=== PATIENT | male | born 1980 | race Caucasian/White ===

== ENCOUNTER 2018-11-02 19:39 | Emergency (ER) | payer SELFPAY ==
[~2018-11-02] VITALS: Ht 182.9 cm; Wt 65.8 kg
[2018-11-02 19:39] VITALS: BP 128/56
[~2018-11-02 19:39] MED LIST: METH4TAB PO; OXYC-12 PO; PRM25T PO; VALA100033 PO
--- NOTE | 2018-11-02 19:39 | NUR ---
PT BROUGHT TO ED BY EMS AND POLICE DEPARTMENT. PT HAS BEEN RUNNING ALL OVER [place] TODAY AND HAS BEEN CONTACTED BY THE POLICE DEPARTMENT NUMEROUS TIMES. PT YELLING IN THE HALLWAYS ATT. PT VERY HOSTILE. PT VERY UNCOOPERATIVE ATT, NOT LETTING THIS RN TAKE VITALS OR START IV'S. PT DID AGREE TO HAVE HALDOL IM, THIS WAS GIVEN. PT STATING THAT HE DID NOT NEED ATIVAN, LAB DRAWS, OR HIS BLOOD TESTED BECASUE HE HAD JUST A SMALL PUNCTURE SITE ON HIS KNEE FROM A AUGUST NAIL. THIS RN EDUCATED PT REGARDING NEED FOR TETANUS SHOT, PT REFUSING. MARIMAR ALEX APRN AT BEDSIDE AND ATTEMPTING TO REASON WITH PT. VITAL SIGNS OBATAINED AND STABLE. PT STATES HE HAS NOT TAKEN ANY DRUGS OR ALCOHOL TODAY. PT REFUSING ANY FURTHER TREATMENT. ISMAEL WILL DISCUSS WITH POLICE OPTIONS FOR PATIENTS.
[2018-11-02] MEDS ORDERED: HALOPERIDOL 5 MG/ML (HALDOL) AMP ONE (19:40)
[2018-11-02] MEDS ORDERED: LORazepam INJ 2 MG/ML (ATIVAN) VIAL ONE (19:40)
--- OUTSIDE RECORDS SUMMARY | 2018-11-02 19:44 | XMS REPORT | Continuity of Care Document ---
Author Author [facility] Address Unknown Phone Unavailable Allergies There is no data. Medications There is no data. Problems Date Dx Coded Attending Type Code Diagnosis Diagnosed By 09/19/2014 JENNY LINARES APRN 788.1 DYSURIA 07/03/2018 UNLISTED, UNLISTED A V70.5 HEALTH EXAMINATION OF DEFINED SUBPOPULATIONS 07/03/2018 UNLISTED, UNLISTED A Z02.1 ENCOUNTER FOR PRE-EMPLOYMENT EXAMINATION Procedures Code [place] [address] UA LONG DIP 09/19/2014 43947 CULTURE URINE 09/22/2014 Results Test Result Range - 07/03/18 13:36 Yarn Examiner Skeins Anat Francisco Donor ID By Employer Representitive Location [facility] Reason For Test Random Temperature In Range YES Deg F 90.00-100.00 Urine Amphetamines Confirmatory Testing Submitted to [facility] Urine Barbiturates NEGATIVE Urine Benzodiazepines NEGATIVE Urine Cocaine NEGATIVE Urine MDMA NEGATIVE Urine Methadone NEGATIVE Urine Methamphetamines Confirmatory Testing Submitted to [facility] Urine Opiates NEGATIVE Urine Oxycodone NEGATIVE Urine PCP NEGATIVE Urine THC Metabolite Confirmatory Testing Submitted to [facility] Encounters ACCT No. Visit Date/Time Discharge Status Pt. Type Provider Facility Loc./Unit Complaint [id number] 09/19/2014 13:37:00 09/19/2014 23:59:59 CLS Outpatient JENNY LINARES APRN [id number] 07/03/2018 13:22:00 07/03/2018 23:59:00 DIS Outpatient UNLISTED, UNLISTED [id number] 10/14/2013 10:07:00 10/14/2013 11:38:00 DIS Emergency [id number] 09/27/2018 11:40:00 09/27/2018 23:59:59 CLS Outpatient VESNA CHAUDHRY DO [facility] [place]
[2018-11-02] MEDS ORDERED: TETANUS,DIPTH,PERTUSS P/F (BOOSTRIX) 0.5 ML VIAL IM STA (19:47)
--- NOTE | 2018-11-02 19:50 | NUR ---
PT REFUSING TO GIVE ANY MEDICAL HISTORY OF ANSWER ANY TRIAGE QUESTIONS ATT, WILL ATTEMPT AT A LATER TIME.
--- NOTE | 2018-11-02 19:51 | ED Psychosocial ---
General Stated Complaint: L KNEE PAIN,SUBSTANCE ABUSE Source: patient Exam Limitations: no limitations History of Present Illness Date Seen by Provider: Nov 02, 2018 Time Seen by Provider: 19:49 Initial Comments To ER per [facility] complete by [place] [employer] with reports of substance abuse. Patient has reportedly been roaming the streets, causing disruption in [place]. He is reportedly homeless. Timing/Duration: constant Severity: moderate Allergies and Home Medications Allergies Coded Allergies: No Known Drug Allergies (Unverified , 10/14/13) Home Medications Methylprednisolone 4 Mg/Dose-Pack Tab.ds.pk, 0 PO UD Prescribed by: ALEN EARLY on 10/14/13 1133 Valacyclovir Hcl 1,000 Mg Tablet, 1,000 MG PO TID FOR VIRAL INFECTION Prescribed by: ALEN EARLY on 10/14/13 1133 Patient Home Medication List Home Medication List Reviewed: Yes Review of Systems Constitutional: see HPI, other (unable to obtain due to his manic state) Past Iytuexu-Seeweb-Caawep Hx Patient Social History Recent Foreign Travel: No Contact w/Someone Who Travel: No Physical Exam Capillary Refill : Height, Weight, BMI Height: '" Weight: 165lbs. oz. 74.434099vo; BMI Method:Stated General Appearance: WD/WN, other (manic, purple hair, pink fingernails and toenails. Moaning, talks nonstop about a variety of subjects. Unable to sit still, moving about the bed.) HEENT: PERRL/EOMI, normal ENT inspection Neck: non-tender, full range of motion Respiratory: lungs clear, normal breath sounds, no respiratory distress, no accessory muscle use Cardiovascular: regular rate, rhythm, no murmur Gastrointestinal: normal bowel sounds, soft Extremities: normal range of motion, other (there is an abrasion over the anteromedial aspect of left knee. No palpable effusion or erythema. Ask him what happened here and he states "I'm not going to answer any more frivolous fucking questions!") Neurologic/Psychiatric: alert Appearance/Memory: disheveled, impaired insight Behavior/Eye Contact: increased rate of speech, uncooperative Thoughts/Hallucinations: delusions, flight of ideas, paranoid Skin: normal color, warm/dry Progress/Results/Core Measures Results/Orders My Orders Orders - MARIMAR ALEX APRN Lorazepam Injection (Ativan Injection) (11/02/18 20:00) Haloperidol Injection (Haldol Injectio (11/02/18 20:00) Medications Given in ED Current Medications Medications Dose Ordered Sig/Anabell Route Start Time Stop Time Status Last Admin Dose Admin Haloperidol Lactate 5 mg ONCE ONCE IM 11/02/18 20:00 11/02/18 20:01 DC 11/02/18 19:59 5 MG Departure Communication (Admissions) Patient refuses any lab tests. Refuses IV start. Yelling and screaming, threatening to staff. Refuses the lorazepam. States he is only here for his knee. [place] [employer] pain here. Due to concern for staff safety I will not try to restrain him as he is larger than most of us here. He is alert. I will release him to law enforcement. He did receive his Haldol 5 mg intramuscular. Impression Primary Impression: Left knee pain Qualified Codes: M25.562 - Pain in left knee Additional Impression: Substance abuse Disposition: 21 DIS/X[address]/LAW ENFORCE Condition: Stable Departure-Patient Inst. Decision time for Depature: 19:56 Referrals: NO,LOCAL PHYSICIAN (PCP/Family) Primary Care Physician Patient Instructions: General (DC) Add. Discharge Instructions: 1. Return to ER for any concerns MARIMAR ALEX APRN Nov 02, 2018 19:51
[2018-11-02] MEDS ORDERED: HALOPERIDOL 5 MG/ML (HALDOL) AMP IM ONE (20:00)
[2018-11-02] MEDS ORDERED: LORazepam INJ 2 MG/ML (ATIVAN) VIAL IVP ONE (20:00)
--- NOTE | 2018-11-02 20:00 | NUR ---
PT MEDICALLY CLEARED BY MARIMAR ALEX APRN. PT REFUSING TO SIGN DISCHARGE PAPERS, POLICE TOOK PT INTO CUSTODY ATT.
== END 2018-11-02 19:51 ==
LOC: EDUNIT# 19:39 → ER 19:40
DX: M25.562 Pain in left knee (principal); F19.10 Other psychoactive substance abuse, uncomplicated; Z79.52 Long term (current) use of systemic steroids; Z59.0 Homelessness
CPT/HCPCS: 93041

== ENCOUNTER 2019-01-07 18:08 | Emergency (ER) | payer SELFPAY ==
[~2019-01-07] VITALS: Ht 177.8 cm; Wt 70.3 kg
--- OUTSIDE RECORDS SUMMARY | 2019-01-07 18:12 | XMS REPORT ---
Author Author Migration, Doctor Organization [facility] Address Unknown Phone Unavailable Care Team Providers Care Small Kick Press Operator Name Role Phone Migration, Doctor Unavailable Unavailable PROBLEMS Type Condition ICD9-CM Code ORK23-EF Code Onset Dates Condition Status SNOMED Code Problem Dysuria 788.1 Active [id number] ALLERGIES No Information ENCOUNTERS Encounter Location Date Diagnosis [facility] [id number] [place] [phone] Nov, Acute bronchitis, unspecified organism J20.9 and Fever R50.9 [facility] [id number] [place] [phone] Aug, Worms in stool B83.9 [facility] [id number] [place] [phone] Dec, [facility] [id number] [place] [address] [phone] Dec, [facility] [id number] [place] [address] [phone] Nov, [facility] [id number] [place] [address] [phone] Nov, [facility] [id number] [place] [address] [phone] Nov, [facility] [id number] [place] [address] [phone] Nov, [facility] [id number] [place] [address] [phone] Oct, [facility] [id number] [place] [address] [phone] Oct, [facility] [id number] [place] [address] [phone] Aug, [facility] [address] [facility] [id number] [place] [address] Aug, [facility] [address] [facility] [id number] [place] [address] Aug, IMMUNIZATIONS No Known Immunizations SOCIAL HISTORY Never Assessed REASON FOR VISIT [place] VITAL SIGNS MEDICATIONS Medication Instructions Dosage Frequency Start Date End Date Duration Status HydrOXYzine HCl 25 mg take 1 tablet by Oral route 4 times per day Oct, Active Seroquel 100 mg take 1.5 tablet by Oral route 2 times per day Nov, Active RESULTS No Results PROCEDURES No Known procedures INSTRUCTIONS MEDICATIONS ADMINISTERED No Known Medications MEDICAL (GENERAL) HISTORY Type Description Date 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
--- OUTSIDE RECORDS SUMMARY | 2019-01-07 18:13 | XMS REPORT | Continuity of Care Document ---
Author Organization Unknown Address Unknown Allergies Active Description Code Type Severity Reaction Onset Reported/Identified Relationship to Patient Clinical Status Yes No Known Drug Allergies [id number] Drug Allergy Unknown N/A 10/14/2013 Medications There is no data. 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 10/14/2013 ALEN EARLY DO Ot 782.0 SKIN SENSATION DISTURB 09/19/2014 JENNY LINARES APRN 788.1 DYSURIA 07/03/2018 UNLISTED, UNLISTED A V70.5 HEALTH EXAMINATION OF DEFINED SUBPOPULATIONS 07/03/2018 UNLISTED, UNLISTED A Z02.1 ENCOUNTER FOR PRE-EMPLOYMENT EXAMINATION 11/02/2018 MARIMAR ALEX APRN Ot F19.10 OTHER PSYCHOACTIVE SUBSTANCE ABUSE, UNCO 11/02/2018 MARIMAR ALEX APRN Ot M25.562 PAIN IN LEFT KNEE 11/02/2018 MARIMAR ALEX APRN Ot Z59.0 HOMELESSNESS 11/02/2018 MARIMAR ALEX APRN Ot 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 Type Provider Facility Loc./Unit Complaint [id number] 09/19/2014 13:37:00 09/19/2014 23:59:59 CLS Outpatient JENNY LINARES APRN [id number] 07/03/2018 13:22:00 07/03/2018 23:59:00 DIS Outpatient UNLISTED, UNLISTED [id number] 11/02/2018 19:40:00 11/02/2018 19:51:00 DIS Emergency MARIMAR ALEX APRN [facility] L KNEE PAIN,SUBSTANCE ABUSE [id number] 10/14/2013 10:07:00 10/14/2013 11:38:00 DIS Emergency ALEN EARLY DO [facility] LEFT SIDE FACIAL NUMBNESS [id number] 01/07/2019 18:09:00 ACT Emergency CORBY JASSO, ALICE Guajardo [facility] SIDE PAIN [id number] 12/31/2018 10:35:00 12/31/2018 23:59:59 CLS Outpatient VESNA CHAUDHRY DO [facility]
[2019-01-07] MEDS ORDERED: KETOROLAC 30 MG/ML VIAL IVP ONE (18:15)
[2019-01-07] MEDS: NS IV 1000 ML 1,000 ML IV SCH (18:26)
[2019-01-07 18:30] LABS: BASOPHILS % (AUTO) 0 % (0-10); EOSINOPHILS # (AUTO) 0.3 10^3/uL (0.0-0.3); EOSINOPHILS % (AUTO) 2 % (0-10); HEMATOCRIT 37 % (40-54); LYMPHOCYTES # (AUTO) 2.3 X 10^3 (1.0-4.0); LYMPHOCYTES % (AUTO) 15 % (12-44); MEAN CORPUSCULAR HEMOGLOBIN 33 PG (25-34); MEAN CORPUSCULAR HGB CONC 35 G/DL (32-36); MEAN CORPUSCULAR VOLUME 94 FL (80-99); MEAN PLATELET VOLUME 9.9 FL (7.4-10.4); MONOCYTES # (AUTO) 1.7 X 10^3 (0.0-1.0); MONOCYTES % (AUTO) 11 % (0-12); NEUTROPHILS # (AUTO) 11.7 X 10^3 (1.8-7.8); NEUTROPHILS % (AUTO) 73 % (42-75); PLATELET COUNT 330 10^3/uL (130-400)
[2019-01-07 18:46] LABS: ALANINE AMINOTRANSFERASE 16 U/L (0-55); ALBUMIN 3.7 GM/DL (3.2-4.5); ALKALINE PHOSPHATASE 92 U/L (40-136); AMYLASE 52 U/L (25-125); BILIRUBIN,TOTAL 0.3 MG/DL (0.1-1.0); BUN/CREATININE RATIO 18; CALCIUM 9.1 MG/DL (8.5-10.1); CARBON DIOXIDE 23 MMOL/L (21-32); CHLORIDE 104 MMOL/L (98-107); CREATININE SERUM 0.91 MG/DL (0.60-1.30); GFR ESTIMATED > 60; GLUCOSE 135 MG/DL (70-105); LIPASE 30 U/L (8-78); POTASSIUM 3.8 MMOL/L (3.6-5.0); SODIUM 134 MMOL/L (135-145); TOTAL PROTEIN 6.6 GM/DL (6.4-8.2)
[2019-01-07 18:47] LABS: EOSINOPHILS % (MANUAL) 1 %; LYMPHOCYTES % (MANUAL) 22 %; MONOCYTES % (MANUAL) 10 %; NEUTROPHILS % (MANUAL) 67 %; RBC MORPH NORMAL
--- NOTE | 2019-01-07 18:47 | Diagnostic Imaging Report ---
INDICATION: Left flank pain with hematuria for approximately one week. FINDINGS: An AP view of the abdomen demonstrates moderately increased stool load especially in the region of the splenic flexure. No obstruction is present. The osseous structures are normal. Phleboliths seen in the right side of pelvis. IMPRESSION: There is moderately increased stool load with no obstruction. Dictated by: Dictated on workstation # [id number]
--- NOTE | 2019-01-07 18:50 | NUR ---
REPORT TO WERO
[2019-01-07] MEDS ORDERED: NS IV 1000 ML 1,000 ML IV SCH (19:00)
--- NOTE | 2019-01-07 19:05 | Diagnostic Imaging Report ---
PROCEDURE: CT urinary tract, rule out kidney stone. TECHNIQUE: Multiple contiguous axial images were obtained through the abdomen and pelvis without the use of intravenous contrast. Auto Exposure Controls were utilized during the CT exam to meet ALARA standards for radiation dose reduction. INDICATION: Abdominal pain. COMPARISON STUDY: KUB from earlier today. FINDINGS: The lung bases are clear. The gallbladder is contracted. The liver, spleen, pancreas, adrenal glands, and kidneys appear normal. There is mild thickening of the urinary bladder wall. Possible cystitis. No ascites, free air, or abnormal adenopathy is present. There is a paucity of subcutaneous fat which makes evaluation of mesenteric edema difficult. No definite edema is seen. Bowel loops demonstrate a moderate amount of stool in the colon. Small bowel is nondistended. The appendix is normal. Bone windows are normal. IMPRESSION: There is increased stool throughout the colon. No inflammatory changes are present. The appendix is normal. Dictated by: Dictated on workstation # [id number]
[2019-01-07 19:34] LABS: BILIRUBIN,URINE NEGATIVE (NEGATIVE); CLARITY,URINE SLIGHTLY CLOUDY; COLOR,URINE YELLOW; GLUCOSE, URINE (UA) NEGATIVE (NEGATIVE); KETONES,URINE NEGATIVE (NEGATIVE); LEUKOCYTE ESTERASE ,URINE 3+ (NEGATIVE); NITRITE,URINE NEGATIVE (NEGATIVE); PH,URINE 6 (5-9); PROTEIN,URINE NEGATIVE (NEGATIVE); UROBILINOGEN,URINE NORMAL (NORMAL)
--- NOTE | 2019-01-07 19:35 | ED Abdominal Pain ---
General Chief Complaint: Abdominal/GI Problems Stated Complaint: SIDE PAIN Nursing Triage Note: AMB TO ROOM REPORTS X 1 WEEK AGO NOTICE BLOOD IN URINE WAS SEEN AT [facility] AT THAT TIME DX WITH POSSIBLE KIDNEY STONE. PAIN RESOLVED YESTERDAY ONSET OF L FLANK PAIN. Sepsis Screen: No Definite Risk Source of Information: Patient Exam Limitations: No Limitations History of Present Illness Date Seen by Provider: Jan 07, 2019 Time Seen by Provider: 18:16 Initial Comments 38-year-old male who presents to the emergency room with complaints of blood in his urine for the past week and went [facility] and was treated for a kidney stone. The pain had resolved and he did end up passing a kidney stone. He reports that yesterday he had similar pain to his left flank area but has not had any blood in his urine. 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) Drug of Choice: METH USED FOR DAY AGO Smoking Status: Current Everyday Smoker Recent Foreign Travel: No Contact w/Someone Who Travel: No Recent Infectious Disease Expo: No Past Medical History Surgeries: No Respiratory: No Cardiac: No Neurological: No Gastrointestinal: No Musculoskeletal: No Endocrine: No Cancer: No Psychosocial: No Integumentary: No Blood Disorders: No Family Medical History Reviewed Nursing Family Hx Physical Exam Vital Signs Vital Signs - First Documented 01/07/19 18:11 Temp 100.9 Pulse 93 Resp 18 B/P (MAP) 150/64 (92) Pulse Ox 98 Capillary Refill : Less Than 3 Seconds Height/Weight/BMI Height: 5'10.00" Weight: 155lbs. oz. 70.777795wq; BMI Method:Stated General Appearance: WD/WN, no apparent distress Respiratory: chest non-tender, lungs clear, normal breath sounds, no respiratory distress, no accessory muscle use Cardiovascular: normal peripheral pulses, regular rate, rhythm, no edema, no gallop, no JVD, no murmur Gastrointestinal: normal bowel sounds, non tender, soft, no organomegaly, no pulsatile mass Extremities: normal capillary refill Neurologic/Psychiatric: alert, normal mood/affect, oriented x 3 Skin: normal color, warm/dry Progress/Results/Core Measures Results/Orders Lab Results Laboratory Tests Test 01/07/19 18:19 01/07/19 19:30 Range/Units White Blood Count 16.0 H 4.3-11.0 10^3/uL Red Blood Count 3.95 L 4.35-5.85 10^6/uL Hemoglobin 13.0 L 13.3-17.7 G/DL Hematocrit 37 L 40-54 % Mean Corpuscular Volume 94 80-99 FL Mean Corpuscular Hemoglobin 33 25-34 PG Mean Corpuscular Hemoglobin Concent 35 32-36 G/DL Red Cell Distribution Width 13.0 10.0-14.5 % Platelet Count 330 130-400 10^3/uL Mean Platelet Volume 9.9 7.4-10.4 FL Neutrophils (%) (Auto) 73 42-75 % Lymphocytes (%) (Auto) 15 12-44 % Monocytes (%) (Auto) 11 0-12 % Eosinophils (%) (Auto) 2 0-10 % Basophils (%) (Auto) 0 0-10 % Neutrophils # (Auto) 11.7 H 1.8-7.8 X 10^3 Lymphocytes # (Auto) 2.3 1.0-4.0 X 10^3 Monocytes # (Auto) 1.7 H 0.0-1.0 X 10^3 Eosinophils # (Auto) 0.3 0.0-0.3 10^3/uL Basophils # (Auto) 0.0 0.0-0.1 10^3/uL Neutrophils % (Manual) 67 % Lymphocytes % (Manual) 22 % Monocytes % (Manual) 10 % Eosinophils % (Manual) 1 % Blood Morphology Comment NORMAL Sodium Level 134 L 135-145 MMOL/L Potassium Level 3.8 3.6-5.0 MMOL/L Chloride Level 104 98-107 MMOL/L Carbon Dioxide Level 23 21-32 MMOL/L Anion Gap 7 5-14 MMOL/L Blood Urea Nitrogen 16 7-18 MG/DL Creatinine 0.91 0.60-1.30 MG/DL Estimat Glomerular Filtration Rate > 60 BUN/Creatinine Ratio 18 Glucose Level 135 H 70-105 MG/DL Calcium Level 9.1 8.5-10.1 MG/DL Corrected Calcium 9.3 8.5-10.1 MG/DL Total Bilirubin 0.3 0.1-1.0 MG/DL Aspartate Amino Transf (AST/SGOT) 14 5-34 U/L Alanine Aminotransferase (ALT/SGPT) 16 0-55 U/L Alkaline Phosphatase 92 40-136 U/L Total Protein 6.6 6.4-8.2 GM/DL Albumin 3.7 3.2-4.5 GM/DL Amylase Level 52 25-125 U/L Lipase 30 8-78 U/L Urine Color YELLOW Urine Clarity SLIGHTLY CLOUDY Urine pH 6 5-9 Urine Specific [place] 1.010 L 1.016-1.022 Urine Protein NEGATIVE NEGATIVE Urine Glucose (UA) NEGATIVE NEGATIVE Urine Ketones NEGATIVE NEGATIVE Urine Nitrite NEGATIVE NEGATIVE Urine Bilirubin NEGATIVE NEGATIVE Urine Urobilinogen NORMAL NORMAL MG/DL Urine Leukocyte Esterase 3+ H NEGATIVE Urine RBC (Auto) 2+ H NEGATIVE Urine RBC 0-2 /HPF Urine WBC TNTC H /HPF Urine Crystals NONE /LPF Urine Bacteria LARGE H /HPF Urine Casts NONE /LPF Urine Mucus NEGATIVE /LPF Urine Culture Indicated YES My Orders Orders - PERLA NGUYEN Iv 1000 Ml (Sodium Chloride 0.9%) (01/07/19 19:00) Ceftriaxone For Iv Use (Rocephin For I (01/07/19 19:45) Rx-Cephalexin Capsule (Rx-Keflex Capsule (01/07/19 19:51) Medications Given in ED Current Medications Medications Dose Ordered Sig/Anabell Route Start Time Stop Time Status Last Admin Dose Admin Ketorolac Tromethamine 30 mg ONCE ONCE IVP 01/07/19 18:15 01/07/19 18:17 DC 01/07/19 18:26 30 MG Vital Signs/I&O 01/07/19 18:11 Temp 100.9 Pulse 93 Resp 18 B/P (MAP) 150/64 (92) Pulse Ox 98 Blood Pressure Mean: 92 Progress Progress Note : Time: 19:53 Progress Note I have seen the patient. I have informed him of his laboratory and imaging studies. He agrees with plan of care, plans for discharge, return precautions were given. He is pain-free at this time. Departure Impression Primary Impression: Urinary tract infection Disposition: HOME, SELF-CARE Condition: Stable/Unchanged Departure-Patient Inst. Decision time for Depature: 19:55 Referrals: [facility] (PCP/Family) Primary Care Physician Patient Instructions: Urinary Tract Infection, Adult (DC) Add. Discharge Instructions: Take medications as directed. Call [facility] first thing tomorrow morning to set up an appointment for follow-up. Return back to the emergency room for worsening symptoms or concerns as needed. All discharge instructions reviewed with patient and/or family. Voiced understanding. Scripts Cephalexin (Keflex) 500 Mg Capsule 500 MG PO TID for 7 Days, #21 CAP Prov: PERLA NGUYEN 01/07/19 PERLA NGUYEN Jan 07, 2019 19:35
[2019-01-07 19:41] LABS: RBC,URINE 0-2 /HPF
[2019-01-07 19:42] LABS: BACTERIA,URINE LARGE /HPF; WBC,URINE TNTC /HPF
[2019-01-07] MEDS ORDERED: cefTRIAXone FOR IV USE 1,000 MG in WATER (STERILE) FOR INJECTION 10 ML IV ONE (19:45)
[2019-01-07] MEDS ORDERED: RX-CEPHALEXIN (KEFLEX) 250 MG CAP PPK#4 PO STA (19:51)
[2019-01-07] MEDS ORDERED: CEPH-507 PO (19:57)
[2019-01-07 21:04] VITALS: BP 145/60
== END 2019-01-07 21:04 | disposition home or self-care (01) ==
LOC: EDUNIT# 18:08 → ER 18:09
DX: N39.0 Urinary tract infection, site not specified (principal); F15.10 Other stimulant abuse, uncomplicated; F12.10 Cannabis abuse, uncomplicated; F17.200 Nicotine dependence, unspecified, uncomplicated
CPT/HCPCS: 36415; 74018; 74176; 80053; 81000; 82150; 83690; 85007; 85027; 87077; 87088; 87186

== ENCOUNTER 2019-01-23 09:33 | Emergency (ER) | payer SELFPAY ==
[~2019-01-23] VITALS: Ht 177.8 cm; Wt 72.6 kg
[~2019-01-23 09:33] MED LIST changes: +CEPH-507 PO
--- OUTSIDE RECORDS SUMMARY | 2019-01-23 09:43 | XMS REPORT | Continuity of Care Document ---
Author Organization Unknown Address Unknown Allergies Active Description Code Type Severity Reaction Onset Reported/Identified Relationship to Patient Clinical Status Yes No Known Drug Allergies [id number] Drug Allergy Unknown N/A 10/14/2013 Medications There is no data. 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 11/05/2018 MARIMAR ALEX APRN Ot F19.10 OTHER PSYCHOACTIVE SUBSTANCE ABUSE, UNCO 11/05/2018 MARIMAR ALEX APRN Ot M25.562 PAIN IN LEFT KNEE 11/05/2018 MARIMAR ALEX APRN Ot Z59.0 HOMELESSNESS 11/05/2018 MARIMAR ALEX APRN Ot Z79.52 MEDICAL SOCIAL WORKER (CURRENT) USE OF SYSTEMIC STER 01/09/2019 PERLA NGUYEN Ot F12.10 CANNABIS ABUSE, UNCOMPLICATED 01/09/2019 PERLA NGUYEN Ot F15.10 OTHER STIMULANT ABUSE, UNCOMPLICATED 01/09/2019 PERLA NGUYEN Ot F17.200 NICOTINE DEPENDENCE, UNSPECIFIED, UNCOMP 01/09/2019 PERLA NGUYEN Ot N39.0 URINARY TRACT INFECTION, SITE NOT SPECIF 01/09/2019 PERLA NGUYEN Ot R31.9 HEMATURIA, UNSPECIFIED Procedures Code Description [place] [address] UA LONG DIP 09/19/2014 86013 CULTURE URINE 09/22/2014 Results Test Result Range Complete blood count (CBC) with automated white blood cell (WBC) differential - 01/07/19 18:19 Blood leukocytes automated count (number/volume) 16.0 10*3/uL 4.3-11.0 Blood erythrocytes automated count (number/volume) 3.95 10*6/uL 4.35-5.85 Venous blood hemoglobin measurement (mass/volume) 13.0 g/dL 13.3-17.7 Blood hematocrit (volume fraction) 37 % 40-54 Automated erythrocyte mean corpuscular volume 94 [foz_us] 80-99 Automated erythrocyte mean corpuscular hemoglobin (mass per erythrocyte) 33 pg 25-34 Automated erythrocyte mean corpuscular hemoglobin concentration measurement ( mass/volume) 35 g/dL 32-36 Automated erythrocyte distribution width ratio 13.0 % 10.0-14.5 Automated blood platelet count (count/volume) 330 10*3/uL 130-400 Automated blood platelet mean volume measurement 9.9 [foz_us] 7.4-10.4 Automated blood neutrophils/100 leukocytes 73 % 42-75 Automated blood lymphocytes/100 leukocytes 15 % 12-44 Blood monocytes/100 leukocytes 11 % 0-12 Automated blood eosinophils/100 leukocytes 2 % 0-10 Automated blood basophils/100 leukocytes 0 % 0-10 Blood neutrophils automated count (number/volume) 11.7 10*3 1.8-7.8 Blood lymphocytes automated count (number/volume) 2.3 10*3 1.0-4.0 Blood monocytes automated count (number/volume) 1.7 10*3 0.0-1.0 Automated eosinophil count 0.3 10*3/uL 0.0-0.3 Automated blood basophil count (count/volume) 0.0 10*3/uL 0.0-0.1 Comprehensive metabolic panel - 01/07/19 18:19 Serum or plasma sodium measurement (moles/volume) 134 mmol/L 135-145 Serum or plasma potassium measurement (moles/volume) 3.8 mmol/L 3.6-5.0 Serum or plasma chloride measurement (moles/volume) 104 mmol/L 98-107 Carbon dioxide 23 mmol/L 21-32 Serum or plasma anion gap determination (moles/volume) 7 mmol/L 5-14 Serum or plasma urea nitrogen measurement (mass/volume) 16 mg/dL 7-18 Serum or plasma creatinine measurement (mass/volume) 0.91 mg/dL 0.60-1.30 Serum or plasma urea nitrogen/creatinine mass ratio 18 NRG Serum or plasma creatinine measurement with calculation of estimated glomerular filtration rate > NRG Serum or plasma glucose measurement (mass/volume) 135 mg/dL 70-105 Serum or plasma calcium measurement (mass/volume) 9.1 mg/dL 8.5-10.1 Serum or plasma total bilirubin measurement (mass/volume) 0.3 mg/dL 0.1-1.0 Serum or plasma alkaline phosphatase measurement (enzymatic activity/volume) 92 U/L 40-136 Serum or plasma aspartate aminotransferase measurement (enzymatic activity/ volume) 14 U/L 5-34 Serum or plasma alanine aminotransferase measurement (enzymatic activity/volume ) 16 U/L 0-55 Serum or plasma protein measurement (mass/volume) 6.6 g/dL 6.4-8.2 Serum or plasma albumin measurement (mass/volume) 3.7 g/dL 3.2-4.5 CALCIUM CORRECTED 9.3 mg/dL 8.5-10.1 Serum or plasma amylase measurement (enzymatic activity/volume) - 01/07/19 18: 19 Serum or plasma amylase measurement (enzymatic activity/volume) 52 U /L 25-125 Lipase - 01/07/19 18:19 Lipase 30 U/L 8-78 Blood manual differential performed detection - 01/07/19 18:19 Blood monocytes/100 leukocytes 10 % NRG Manual blood segmented neutrophils/100 leukocytes 67 % NRG Manual blood lymphocytes/100 leukocytes 22 % NRG Manual eosinophils/100 leukocytes in nose 1 % NRG Blood erythrocyte morphology finding identification NORMAL NRG Complete urinalysis with reflex to culture - 01/07/19 19:30 Urine color determination YELLOW NRG Urine clarity determination SLIGHTLY CLOUDY NRG Urine pH measurement by test strip 6 5-9 Specific gravity of urine by test strip 1.010 1.016- 1.022 Urine protein assay by test strip, semi-quantitative NEGATIVE NEGATIVE Urine glucose detection by automated test strip NEGATIVE NEGATIVE Erythrocytes detection in urine sediment by light microscopy 2+ NEGATIVE Urine ketones detection by automated test strip NEGATIVE NEGATIVE Urine nitrite detection by test strip NEGATIVE NEGATIVE Urine total bilirubin detection by test strip NEGATIVE NEGATIVE Urine urobilinogen measurement by automated test strip (mass/volume) NORMAL NORMAL Urine leukocyte esterase detection by dipstick 3+ NEGATIVE Automated urine sediment erythrocyte count by microscopy (number/high power field) [HPF] NRG Automated urine sediment leukocyte count by microscopy (number/high power field ) TNTC NRG Bacteria detection in urine sediment by light microscopy LARGE NRG Crystals detection in urine sediment by light microscopy NONE NRG Casts detection in urine sediment by light microscopy NONE NRG Mucus detection in urine sediment by light microscopy NEGATIVE NRG Complete urinalysis with reflex to culture YES NRG Bacterial urine culture - 01/07/19 19:30 Bacterial urine culture [id number] NRG COLONY COUNT >100,000/ML NRG FTX;REPORTABLE SUSCEPTIBILITY REPORTED 01/09/19 10:05 NRG RML Sensitivity Panel - 01/07/19 19:30 Gentamicin susceptibility test by minimum inhibitory concentration > NRG Trimethoprim/sulfamethoxazole susceptibility test by minimum inhibitoryconcentration > NRG Levofloxacin susceptibility test by minimum inhibitory concentration <= NRG Ampicillin susceptibility test by minimum inhibitory concentration > NRG Cefazolin susceptibility test by minimum inhibitory concentration > NRG Ceftriaxone susceptibility test by minimum inhibitory concentration <= NRG Ciprofloxacin susceptibility test by minimum inhibitory concentration 1 NRG Meropenem susceptibility test by minimum inhibitory concentration < = NRG Nitrofurantoin susceptibility test by minimum inhibitory concentration <= NRG Amoxicillin and clavulanate potassium susc ISELA = NRG Encounters ACCT No. Visit Date/Time Discharge Status Pt. Type Provider Facility Loc./Unit Complaint [id number] 01/10/2019 12:40:00 01/10/2019 23:59:59 CLS Outpatient [id number] 09/19/2014 13:37:00 09/19/2014 23:59:59 CLS Outpatient JENNY LINARES APRN [id number] 01/07/2019 18:09:00 01/07/2019 21:04:00 DIS Outpatient PERLA NGUYEN [facility] ER SIDE PAIN [id number] 11/02/2018 19:40:00 11/02/2018 19:51:00 DIS Emergency MARIMAR ALEX APRN [facility] ER L KNEE PAIN,SUBSTANCE ABUSE [id number] 10/14/2013 10:07:00 10/14/2013 11:38:00 DIS Emergency ALEN EARLY DO [facility] ER LEFT SIDE FACIAL NUMBNESS [id number] 01/23/2019 09:34:00 ACT Emergency CORBY JASSO, ALICE Guajardo [facility] ER ERECTILE PROBLEMS
--- NOTE | 2019-01-23 10:29 | NUR ---
TO WAITNG ROOM FOR COFFEE REQUESTING LUNCH TRAY
[2019-01-23 10:31] LABS: BASOPHILS % (AUTO) 0 % (0-10); EOSINOPHILS # (AUTO) 0.2 10^3/uL (0.0-0.3); EOSINOPHILS % (AUTO) 2 % (0-10); HEMATOCRIT 40 % (40-54); HEMOGLOBIN 13.6 G/DL (13.3-17.7); LYMPHOCYTES # (AUTO) 2.5 X 10^3 (1.0-4.0); LYMPHOCYTES % (AUTO) 23 % (12-44); MEAN CORPUSCULAR HEMOGLOBIN 33 PG (25-34); MEAN CORPUSCULAR HGB CONC 34 G/DL (32-36); MEAN CORPUSCULAR VOLUME 96 FL (80-99); MEAN PLATELET VOLUME 10.1 FL (7.4-10.4); MONOCYTES % (AUTO) 9 % (0-12); NEUTROPHILS # (AUTO) 7.4 X 10^3 (1.8-7.8); NEUTROPHILS % (AUTO) 66 % (42-75); PLATELET COUNT 284 10^3/uL (130-400); RED CELL DISTRIBUTION WIDTH 13.7 % (10.0-14.5); WHITE BLOOD COUNT 11.1 10^3/uL (4.3-11.0)
[2019-01-23 10:52] LABS: ALANINE AMINOTRANSFERASE 19 U/L (0-55); ALBUMIN 3.9 GM/DL (3.2-4.5); ALKALINE PHOSPHATASE 83 U/L (40-136); BILIRUBIN,TOTAL 0.2 MG/DL (0.1-1.0); BUN/CREATININE RATIO 14; CALCIUM 9.6 MG/DL (8.5-10.1); CARBON DIOXIDE 29 MMOL/L (21-32); CHLORIDE 105 MMOL/L (98-107); CREATININE SERUM 1.11 MG/DL (0.60-1.30); GFR ESTIMATED > 60; GLUCOSE 79 MG/DL (70-105); POTASSIUM 4.9 MMOL/L (3.6-5.0); SODIUM 139 MMOL/L (135-145); TOTAL PROTEIN 6.7 GM/DL (6.4-8.2)
--- NOTE | 2019-01-23 10:54 | ED GU-Male ---
General Chief Complaint: General Problems/Pain Stated Complaint: ERECTILE PROBLEMS Nursing Triage Note: AMB TO ED REPORTS WOKE UP THIS AM AROUND 230 AWITH ERECTION WENT BACK TO SLEEP AND WOKE AGAIN AND ERECTION REMAINED. ON ADMIT TO ED REPORTS IT IS BETTER NOW. Source: patient Exam Limitations: no limitations History of Present Illness Date Seen by Provider: Jan 23, 2019 Time Seen by Provider: 10:02 Initial Comments This 38-year-old gentleman presents to emergency room with priapism. He reports first noticing his erection is 02:30 when he got up to urinate. The erection would not allow him to urinate. He stepped into the shower to help him relax. He was eventually able to urinate with ongoing erection. He went back to sleep and woke up again at 06:30 with persistent erection. He again showered and got ready for the day but erection persisted. It did become rather painful. Erection finally stopped when roomed into the ER. His penis is now fairly flaccid and pain has resolved. He reports this is the fifth episode of prolonged erection. His last episode was 8-12 months ago and lasted even longer than this one. He denies taking any medications or supplements of any kind. He denies any drug or alcohol use. He has never been seen by a healthcare provider for this problem. Allergies and Home Medications Allergies Coded Allergies: No Known Drug Allergies (Unverified , 10/14/13) Home Medications Cephalexin 500 Mg Capsule, 500 MG PO TID Prescribed by: PERLA NGUYEN on 01/07/191956 Patient Home Medication List Home Medication List Reviewed: Yes Review of Systems Review of Systems Constitutional: no symptoms reported EENTM: no symptoms reported Respiratory: no symptoms reported Cardiovascular: no symptoms reported Gastrointestinal: no symptoms reported Genitourinary: see HPI Musculoskeletal: no symptoms reported Skin: no symptoms reported Psychiatric/Neurological: No Symptoms Reported Endocrine: No Symptoms Reported Hematologic/Lymphatic: No Symptoms Reported Past Yorseml-Ccpzll-Pqzoan Hx Past Med/Social Hx: Reviewed and Corrections made Patient Social History Alcohol Use: Occasionally Uses Recreational Drug Use: Yes (POT AND ETOH REIMBURSEMENT SPEC) Drug of Choice: METH USED FOR DAY AGO Recent Foreign Travel: No Contact w/Someone Who Travel: No Recent Infectious Disease Expo: No Past Medical History Surgeries: No Respiratory: No Cardiac: No Neurological: No Reproductive Disorders: Yes (priapism) Genitourinary: Yes (priapism) Gastrointestinal: No Musculoskeletal: No Endocrine: No Cancer: No Psychosocial: No Integumentary: No Blood Disorders: No Physical Exam Vital Signs Vital Signs - First Documented 01/23/19 09:36 Temp 97.5 Pulse 82 Resp 18 B/P (MAP) 136/67 (90) Pulse Ox 100 O2 Delivery Room Air Capillary Refill : Less Than 3 Seconds Height, Weight, BMI Height: 5'10.00" Weight: 160lbs. oz. 72.032442du; BMI Method:Stated General Appearance: WD/WN, no apparent distress HEENT: normal ENT inspection Neck: normal inspection Cardiovascular: regular rate, rhythm, no edema Respiratory: lungs clear, normal breath sounds, no respiratory distress, no accessory muscle use Gastrointestinal: normal bowel sounds, non tender, soft Male: other (curvature is noted to the penis. Penis is not erect and slightly full, not quite completely flaccid. No tenderness. Normal appearing scrotum and testicles) Extremities: normal inspection Neurologic/Psychiatric: senior patient account representative II-XII nml as tested, no motor/sensory deficits, alert, normal mood/affect, oriented x 3 Skin: normal color, warm/dry Progress/Results/Core Measures Suspected Sepsis Recent Fever Within 48 Hours: No Infection Criteria Present: None New/Unexplained Altered Menta: No Sepsis Screen: No Definite Risk SIRS Temperature:97.5 Pulse: 82 Respiratory Rate: 18 Laboratory Tests 01/23/19 10:22: White Blood Count 11.1H Blood Pressure 136 /67 Mean: 90 Laboratory Tests 01/23/19 10:22: Creatinine 1.11, Platelet Count 284, Total Bilirubin 0.2 Results/Orders Lab Results Laboratory Tests Test 01/23/19 10:00 01/23/19 10:22 Range/Units White Blood Count 11.1 H 4.3-11.0 10^3/uL Red Blood Count 4.17 L 4.35-5.85 10^6/uL Hemoglobin 13.6 13.3-17.7 G/DL Hematocrit 40 40-54 % Mean Corpuscular Volume 96 80-99 FL Mean Corpuscular Hemoglobin 33 25-34 PG Mean Corpuscular Hemoglobin Concent 34 32-36 G/DL Red Cell Distribution Width 13.7 10.0-14.5 % Platelet Count 284 130-400 10^3/uL Mean Platelet Volume 10.1 7.4-10.4 FL Neutrophils (%) (Auto) 66 42-75 % Lymphocytes (%) (Auto) 23 12-44 % Monocytes (%) (Auto) 9 0-12 % Eosinophils (%) (Auto) 2 0-10 % Basophils (%) (Auto) 0 0-10 % Neutrophils # (Auto) 7.4 1.8-7.8 X 10^3 Lymphocytes # (Auto) 2.5 1.0-4.0 X 10^3 Monocytes # (Auto) 1.0 0.0-1.0 X 10^3 Eosinophils # (Auto) 0.2 0.0-0.3 10^3/uL Basophils # (Auto) 0.0 0.0-0.1 10^3/uL Sodium Level 139 135-145 MMOL/L Potassium Level 4.9 3.6-5.0 MMOL/L Chloride Level 105 98-107 MMOL/L Carbon Dioxide Level 29 21-32 MMOL/L Anion Gap 5 5-14 MMOL/L Blood Urea Nitrogen 16 7-18 MG/DL Creatinine 1.11 0.60-1.30 MG/DL Estimat Glomerular Filtration Rate > 60 BUN/Creatinine Ratio 14 Glucose Level 79 70-105 MG/DL Calcium Level 9.6 8.5-10.1 MG/DL Corrected Calcium 9.7 8.5-10.1 MG/DL Total Bilirubin 0.2 0.1-1.0 MG/DL Aspartate Amino Transf (AST/SGOT) 13 5-34 U/L Alanine Aminotransferase (ALT/SGPT) 19 0-55 U/L Alkaline Phosphatase 83 40-136 U/L Total Protein 6.7 6.4-8.2 GM/DL Albumin 3.9 3.2-4.5 GM/DL My Orders Orders - ALICE TAVAREZ MD Cbc With Automated Diff (01/23/19 10:14) Comprehensive Metabolic Panel (01/23/19 10:14) Sickle Cell Screen (01/23/19 10:58) Vital Signs/I&O 01/23/19 01/23/19 09:36 11:13 Temp 97.5 97.5 Pulse 82 82 Resp 18 18 B/P (MAP) 136/67 (90) 136/67 (90) Pulse Ox 100 100 O2 Delivery Room Air Capillary Refill : Less Than 3 Seconds Blood Pressure Mean: 90 Progress Note #1: Time: 10:54 Progress Note Patient seen and examined. Basic labs are pending. Progress Note #2: Time: 11:13 Progress Note Patient had no return of erection during his ER stay. Case was discussed with Dr. De La Torre. He recommended urology follow-up. He also recommended a sickle cell screen which was ordered. Patient is to review that in his follow-up. We discussed return precautions. Departure Impression Primary Impression: Priapism Disposition: 01 HOME, SELF-CARE Condition: Improved Departure-Patient Inst. Decision time for Depature: 11:00 Referrals: [facility] (PCP/Family) Primary Care Physician JITENDRA DE LA TORRE MD Patient Instructions: Priapism Add. Discharge Instructions: Return to the emergency room for any erection lasting 4 or more hours or prolonged painful erections. You may wish to present to a tertiary care facility with 24/7 urology coverage such as the [facility] in [place]. Follow-up with a urologist such as Dr. De La Torre and your primary care provider as soon as possible. At those follow-up appointments review the sickle cell screening results. Return to care or contact your doctor if you have any other problems or concerns. All discharge instructions reviewed with patient and/or family. Voiced understanding. Work/School Note: Work Release Form Date Seen in the Emergency Department: Jan 23, 2019 Return to Work: Jan 23, 2019 Restrictions: No Restrictions Copy Copies To 1: JITENDRA DE LA TORRE MD Copies To 2: VESNA CHAUDHRY JOSHUA T MD Jan 23, 2019 10:54
[2019-01-23 11:13] VITALS: BP 136/67
== END 2019-01-23 11:13 | disposition home or self-care (01) ==
LOC: EDUNIT# 09:33 → ER 09:34
DX: N48.30 Priapism, unspecified (principal); F15.10 Other stimulant abuse, uncomplicated; F12.10 Cannabis abuse, uncomplicated; F10.10 Alcohol abuse, uncomplicated
CPT/HCPCS: 36415; 80053; 85025; 85660

== ENCOUNTER 2020-01-01 02:10 | Emergency (ER) | payer SELFPAY ==
[~2020-01-01] VITALS: Ht 155.4 cm; Wt 74.8 kg
--- NOTE | 2020-01-01 02:15 | NUR ---
Dr. Harvey notified of patients complaint. patient requesting to smoke and for food. This RN explained that patient needs to be seen by a physican.
--- NOTE | 2020-01-01 02:16 | NUR ---
patient taking about being homeless stating he is "high as f..." patient states he has been dancing. pt states he has been diagnosed with TB, has been treated for it. Patient also talking about how he has parasites. patient unable to sit still.
[2020-01-01 02:18] VITALS: BP 135/69
--- NOTE | 2020-01-01 02:18 | NUR ---
Patient got up said he was going outside to smoke and we couldn't do anything about it. Dr. Harvey was in the donning room as patient was walking out the door.
--- OUTSIDE RECORDS SUMMARY | 2020-01-01 02:18 | XMS REPORT ---
Author Author Malick LEMUS Organization [facility] Address [address] [place] [address] Care Team Providers Care Process Control Supervisor Name Role Phone RAFAEL LEMUS Unavailable PROBLEMS Type Condition ICD9-CM Code [id number] Code Onset Dates Condition S tatus SNOMED Code Problem Dysuria 788.1 Active [id number] ALLERGIES No Information ENCOUNTERS Encounter Location Date Diagnosis [facility] [address] [address] Dec, Dysuria R30.0 ; History of U TI Z87.440 ; History of nephrolithiasis Z87.442 and Homelessness Z59.0 [facility] [address] [address] Dec, Hematuria, unspecified type R31.9 [facility] [address] [address] Nov, Acute bronchitis, unspecifie d organism J20.9 and Fever R50.9 [facility] [address] [place] [id number] [address] [place] [phone] Aug, Worms in stool B83.9 [facility] [id number] [place] [id number] Dec, [facility] [address] [place] [id number] [address] [place] [phone] Dec, [facility] [address] [address] Nov, [facility] [address] [place] [id number] [address] [place] [phone] Nov, [facility] [address] [place] [address] Nov, [facility] [address] [facility] [id number] [address] [place] [phone] Nov, [facility] [address] [facility] [id number] [address] [place] [phone] Oct, [facility] [address] [facility] [id number] [address] [place] [phone] Oct, [facility] [address] [facility] [id number] [address] [place] [phone] Aug, [facility] [address] [facility] [id number] [address] [place] [phone] Aug, [facility] [address] [facility] [id number] [address] [place] [phone] Aug, IMMUNIZATIONS No Known Immunizations SOCIAL HISTORY Never Assessed REASON FOR VISIT PLAN OF CARE VITAL SIGNS MEDICATIONS No Known Medications RESULTS No Results PROCEDURES No Known procedures INSTRUCTIONS MEDICATIONS ADMINISTERED No Known Medications MEDICAL (GENERAL) HISTORY Type Description Date Medical History 2006 TB, treated Medical History bipolar Surgical History T & A as a child
--- OUTSIDE RECORDS SUMMARY | 2020-01-01 02:18 | XMS REPORT ---
Author Author Malick MATUTE Organization [facility] Address [address] [place] [address] Care Team Providers Care Extrusion Die Repair Manager Name Role Phone MALICK MATUTE Unavailable PROBLEMS Type Condition ICD9-CM Code [id number] Code Onset Dates Condition S tatus SNOMED Code Problem Dysuria 788.1 Active [id number] ALLERGIES No Known Allergies ENCOUNTERS Encounter Location Date Diagnosis [facility] [address] [address] Dec, Dysuria R30.0 ; History of U TI Z87.440 ; History of nephrolithiasis Z87.442 and Homelessness Z59.0 [facility] [address] [address] Dec, Hematuria, unspecified type R31.9 [facility] [address] [address] Nov, Acute bronchitis, unspecifie d organism J20.9 and Fever R50.9 [facility] [address] [address] Aug, Worms in stool B83.9 [facility] [address] [address] Dec, [place] [address] [address] Dec, [place] [address] [address] Nov, [facility] [address] [address] Nov, [facility] [address] [facility] [id number] [address] [place] [phone] Nov, [facility] [address] [facility] [id number] [address] [place] [phone] Nov, [facility] [address] [id number] [address] [place] [phone] Oct, [facility] [address] [facility] [id number] [address] [place] [phone] Oct, [facility] [address] [facility] [id number] [address] [place] [phone] Aug, [facility] [address] [facility] [id number] [address] [place] [phone] Aug, [facility] [address] [facility] [id number] [address] [place] [phone] Aug, IMMUNIZATIONS No Known Immunizations SOCIAL HISTORY Never Assessed REASON FOR VISIT congestion/fever on and off since 11/28/18. Pt has a green nasal drainage. Pt has a cough that has a green sputum. ZAYDA PLAN OF CARE Activity Details Follow Up if not improving with PCP or reg follow up Reason: VITAL SIGNS Height 70 in 2018-12-02 Weight 155.6 lbs 2018-12-02 Temperature 98.4 degrees Fahrenheit 2018-12-02 Heart Rate 86 bpm 2018-12-02 Respiratory Rate 16 2018-12-02 BMI 22.32 kg/m2 2018-12-02 Blood pressure systolic 100 mmHg 2018-12-02 Blood pressure diastolic 68 mmHg 2018-12-02 MEDICATIONS Medication Instructions Dosage Frequency Start Date End Date Duration S tatus PredniSONE 20 MG Orally Once a day 2 tablet 24h Nov, 5 days Active Azithromycin 250 MG Orally Once a day 2 tablets on the rst day, then 1 tablet daily for 4 days 24h Nov, 5 day(s) Active RESULTS Name Result Date Reference Range INFLUENZA A & B (IN HOUSE) 2018-12-02 INFLUENZA A negative INFLUENZA B negative Control + Lot # [id number] Exp date 2021-06-18 PROCEDURES Procedure Date Ordered Result Body Site INFLUENZA ASSAY W/OPTIC December 02, 2018 INSTRUCTIONS MEDICATIONS ADMINISTERED No Known Medications MEDICAL (GENERAL) HISTORY Type Description Date Medical History 2006 TB, treated Medical History bipolar Surgical History T & A as a child
--- OUTSIDE RECORDS SUMMARY | 2020-01-01 02:18 | XMS REPORT ---
Author Author Malick Jiménez Doctor Organization [facility] Address Unknown Phone Unavailable Care Team Providers Care Assembler Carbon Brushes Name Role Phone Migration, Doctor Unavailable Unavailable PROBLEMS Type Condition ICD9-CM Code [id number] Code Onset Dates Condition S tatus SNOMED Code Problem Dysuria 788.1 Active [id number] ALLERGIES No Information ENCOUNTERS Encounter Location Date Diagnosis [facility] [address] [address] Dec, Dysuria R30.0 ; History of U TI Z87.440 ; History of nephrolithiasis Z87.442 and Homelessness Z59.0 [facility] [address] [address] Dec, Hematuria, unspecified type R31.9 [facility] [address] [address] Nov, Acute bronchitis, unspecifie d organism J20.9 and Fever R50.9 [facility] [address] [place] [id number] [place] [phone] Aug, Worms in stool B83.9 [facility] [address] [address] Dec, [facility] [address] [address] Dec, [facility] [address] [address] Nov, [facility] [address] [address] Nov, [facility] [address] [address] Nov, [place] [id number] [facility] [id number] [address] [place] [phone] Nov, [facility] [address] [facility] [id number] [address] [place] [phone] Oct, [facility] [address] [facility] [id number] [address] [place] [phone] Oct, [facility] [address] [facility] [id number] [address] [place] [phone] Aug, [facility] [address] [facility] [id number] [address] [place] [phone] Aug, [facility] [address] [facility] [id number] [address] [place] [phone] Aug, IMMUNIZATIONS No Known Immunizations SOCIAL HISTORY Never Assessed REASON FOR VISIT EMR[facility] PLAN OF CARE VITAL SIGNS MEDICATIONS No Known Medications RESULTS No Results PROCEDURES No Known procedures INSTRUCTIONS MEDICATIONS ADMINISTERED No Known Medications MEDICAL (GENERAL) HISTORY Type Description Date 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
--- OUTSIDE RECORDS SUMMARY | 2020-01-01 02:18 | XMS REPORT ---
Author Author Malick LEMUS Organization [facility] Address [address] [place] [address] Care Team Providers Care Kelp Gatherer Name Role Phone RAFAEL LEMUS Unavailable PROBLEMS Type Condition ICD9-CM Code ENV21-MV Code Onset Dates Condition S tatus SNOMED Code Problem Dysuria 788.1 Active [id number] ALLERGIES No Information ENCOUNTERS Encounter Location Date Diagnosis [facility] [address] [phone] Mar, [facility] [address] [address] Dec, Dysuria R30.0 ; History of U TI Z87.440 ; History of nephrolithiasis Z87.442 and Homelessness Z59.0 [facility] [address] [place] [id number] [address] [place] [phone] Dec, Hematuria, unspecified type R31.9 [facility] [address] [place] [id number] [address] [place] [phone] Nov, Acute bronchitis, unspecifie d organism J20.9 and Fever R50.9 [facility] [address] [place] [id number] [address] [place] [phone] Aug, Worms in stool B83.9 [facility] [address] [facility] [id number] [address] [place] [phone] Dec, [facility] [address] [place] [id number] [address] [place] [phone] Dec, [facility] [address] [place] [id number] [address] [place] [phone] Nov, [facility] [address] [place] [address] Nov, [facility] [address] [id number] [address] [place] [phone] Nov, [facility] [address] [facility] [id number] [address] [place] [phone] Nov, [facility] [address] [facility] [id number] [address] [place] [phone] Oct, [facility] [address] [facility] [id number] [address] [place] [phone] Oct, [facility] [address] [facility] [id number] [address] [place] [phone] Aug, [facility] [address] [facility] [id number] [address] [place] [phone] Aug, [facility] [address] [facility] [id number] [address] [place] [phone] Aug, IMMUNIZATIONS No Known Immunizations SOCIAL HISTORY Never Assessed REASON FOR VISIT PLAN OF CARE VITAL SIGNS MEDICATIONS Unknown Medications RESULTS No Results PROCEDURES No Known procedures INSTRUCTIONS MEDICATIONS ADMINISTERED No Known Medications MEDICAL (GENERAL) HISTORY Type Description Date 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
--- OUTSIDE RECORDS SUMMARY | 2020-01-01 02:18 | XMS REPORT ---
Author Author Malick Vee Organization [facility] Address 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 ; High risk heterosexual behavior Z72.51 ; Tobacco abuse counseling Z71.6 and Insomnia G47.00 IMMUNIZATIONS No Known Immunizations SOCIAL HISTORY Never Assessed REASON FOR VISIT Physical PLAN OF CARE Activity Details Follow Up prn Reason: Pending Test RPR (DX) W/REFL [facility] [facility] [place] NFIRMATORY TESTING Pending Test HIV 1/2 ANTIGEN/ANTIBODY,FOU RTH GENERATION W/RFL Pending Test HEPATITIS PANEL, GENERAL VITAL SIGNS Temperature 97.8 degrees Fahrenheit 2019-05-08 Heart Rate 74 /min 2019-05-08 Respiratory Rate 20 /min 2019-05-08 Oximetry 94 % 2019-05-08 Weight 167 lbs 2019-05-08 Height 70.8 in 2019-05-08 BMI 23.42 kg/m2 2019-05-08 Blood pressure systolic 114 mm Hg 2019-05-08 Blood pressure diastolic 67 mm Hg 2019-05-08 MEDICATIONS Medication Instructions Dosage Frequency Start Date End Date Duration S tatus Trazodone HCl 100 MG Orally Once a day 1 tablet at bedtime 24h 0 8 May, 2019 30 day(s) Active RESULTS No Results PROCEDURES No Known procedures INSTRUCTIONS MEDICATIONS ADMINISTERED No Known Medications MEDICAL (GENERAL) HISTORY Type Description Date Medical History bipolar disorder Surgical History tonsillectomy Hospitalization History head trauma
--- OUTSIDE RECORDS SUMMARY | 2020-01-01 02:19 | XMS REPORT | Continuity of Care Document ---
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 SUBSTANCE ABUSE, UNCO 11/05/2018 MARIMAR ALEX APRN Ot M25.562 PAIN IN LEFT KNEE 11/05/2018 MARIMAR ALEX APRN Ot Z59 .0 HOMELESSNESS 11/05/2018 MARIMAR ALEX APRN Ot 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 01/07/2019 WENDY PERLA Ot F12.10 CANNABIS ABUSE, UNCOMPLICATED 01/07/2019 BERNPERLA MIKE Ot F15.10 OTHER STIMULANT ABUSE, UNCOMPLICATED 01/07/2019 BERNRASHID, PERLA Ot F17.200 NICOTINE DEPENDENCE, UNSPECIFIED, UNCOMP 01/07/2019 WENDY PERLA Ot N39.0 URINARY TRACT INFECTION, SITE NOT SPECIF 01/07/2019 EPI NGUYENIS Ot R31.9 HEMATURIA, UNSPECIFIED 01/09/2019 PERLA NGUYEN Ot F12.10 CANNABIS ABUSE, UNCOMPLICATED 01/09/2019 PERLA NGUYEN Ot F15.10 OTHER STIMULANT ABUSE, UNCOMPLICATED 01/09/2019 PERLA NGUYEN Ot F17.200 NICOTINE DEPENDENCE, UNSPECIFIED, UNCOMP 01/09/2019 PERLA NGUYEN Ot N39.0 URINARY TRACT INFECTION, SITE NOT SPECIF 01/09/2019 PERLA NGUYEN Ot R31.9 HEMATURIA, UNSPECIFIED 01/25/2019 CORBY JASSO, ALICE Guajardo Ot F10.10 ALCOHOL ABUSE, UNCOMPLICATED 01/25/2019 CORBY JASSO, ALICE Guajardo Ot F12.10 CANNABIS ABUSE, UNCOMPLICATED 01/25/2019 CORBY JASSO, ALICE Guajardo Ot F15.10 OTHER STIMULANT ABUSE, UNCOMPLICATED 01/25/2019 CORBY JASSO, ALICE Guajardo Ot N48.30 PRIAPISM, UNSPECIFIED Procedures Code Description [place] [address] UA L YAZ DIP 09/19/2014 62679 CULT URE URINE 09/22/2014 Results Test Result Range Complete blood count (CBC) with automate d white blood cell (WBC) differential - 01/07/19 18:19 Blood leukocytes automated count (number/volume) 16.0 10*3/uL 4.3-11.0 Blood erythrocytes automated count (number/volume) 3.95 10*6/uL 4.35-5.85 Venous blood hemoglobin measurement (mass/volume) 13.0 g/dL 13.3-17.7 Blood hematocrit (volume fraction) 37 % 40-54 Automated erythrocyte mean corpuscular volume 94 [ foz_us] 80-99 Automated erythrocyte mean corpuscular h emoglobin (mass per erythrocyte) 33 pg 25-34 Automated erythrocyte mean corpuscular h emoglobin concentration measurement (mass/volume) 35 g/dL 32-36 Automated erythrocyte distribution width ratio 13. 0 % 10.0- 14.5 Automated blood platelet count (count/volume) 330 10*3/uL [...] 10*3 1.0-4.0 Blood monocytes automated count (number/volume) 1. 7 10*3 0.0-1.0 Automated eosinophil count 0.3 10*3/uL 0 .0-0.3 Automated blood basophil count (count/volume) 0.0 10*3/uL 0.0-0.1 Comprehensive metabolic panel - 01/07/19 18:19 Serum or plasma sodium measurement (moles/volume) 134 mmol/L 135-145 Serum or plasma potassium measurement (moles/volume) 3.8 mmol/L 3.6-5.0 Serum or plasma chloride measurement (moles/volume) 104 mmol/L 98-107 Carbon dioxide 23 mmol/L 21-32 Serum or plasma anion gap determination (moles/volume) 7 mmol/L 5-14 Serum or plasma urea nitrogen measurement (mass/volume ) 16 mg/dL 7-18 Serum or plasma creatinine measurement (mass/volume) 0.91 mg/dL 0.60-1.30 Serum or plasma urea nitrogen/creatinine mass ratio 18 NRG Serum or plasma creatinine measurement w ith calculation of estimated glomerular filtration rate > NRG Serum or plasma glucose measurement (mass/volume) 135 mg/dL 70-105 Serum or plasma calcium measurement (mass/volume) 9.1 mg/dL 8.5-10.1 Serum or plasma total bilirubin measurement (mass/volu me) 0.3 mg/dL 0.1-1.0 Serum or plasma alkaline phosphatase seven surement (enzymatic activity/volume) 92 U/L 40-136 Serum or plasma aspartate aminotransfera se measurement (enzymatic activity/volume) 14 U/L 5-34 Serum or plasma alanine aminotransferase measurement (enzymatic activity/volume) 16 U/L 0-55 Serum or plasma protein measurement (mass/volume) 6.6 g/dL 6.4-8.2 Serum or plasma albumin measurement (mass/volume) 3.7 g/dL 3.2-4.5 CALCIUM CORRECTED 9.3 mg/dL 8.5-10.1 Serum or plasma amylase measurement (enz ymatic activity/volume) - 01/07/19 18:19 Serum or plasma amylase measurement (enzymatic activit y/volume) 52 U/L 25-125 Lipase - 04/09/19 18:19 Lipase 30 U/L 8-78 Blood manual differential performed dete ction - 01/07/19 18:19 Blood monocytes/100 leukocytes 10 % NRG Manual blood segmented neutrophils/100 leukocytes 67 % NRG Manual blood lymphocytes/100 leukocytes 22 % NRG Manual eosinophils/100 leukocytes in nose 1 % NRG Blood erythrocyte morphology finding identification NORMAL NRG Complete urinalysis with reflex to cultu re - 01/07/19 19:30 Urine color determination YELLOW NRG Urine clarity determination SLIGHTLY CLOUDY NRG Urine pH measurement by test strip 6 5-9 Specific gravity of urine by test strip 1.010 1.016-1.022 Urine protein assay by test strip, semi-quantitative NEGATIVE NEGATIVE Urine glucose detection by automated test strip NE GATIVE NEGATIVE Erythrocytes detection in urine sediment by light micr oscopy 2+ NEGATIVE Urine ketones detection by automated test strip NE GATIVE NEGATIVE Urine nitrite detection by test strip NEGATIVE NEGATIVE Urine total bilirubin detection by test strip NEGA TIVE NEGATIVE Urine urobilinogen measurement by automated test strip (mass/volume) NORMAL NORMAL Urine leukocyte esterase detection by dipstick 3+ NEGATIVE Automated urine sediment erythrocyte cou nt by microscopy (number/high power field) [HPF] NRG Automated urine sediment leukocyte count by microscopy (number/high power field) TNTC NRG Bacteria detection in urine sediment by light microsco py LARGE NRG Crystals detection in urine sediment by light microsco py NONE NRG Casts detection in urine sediment by light microscopy NONE NRG Mucus detection in urine sediment by light microscopy NEGATIVE NRG Complete urinalysis with reflex to culture YES NRG Bacterial urine culture - 01/07/19 19:30 Bacterial urine culture [id number] NRG COLONY COUNT >100,000/ML NRG FTX;REPORTABLE SUSCEPTIBILITY REPORTED 01/09/19 10: 05 NRG RML Sensitivity Panel - 01/07/19 19:30 Gentamicin susceptibility test by minimum inhibitory c oncentration > NRG Trimethoprim/sulfamethoxazole susceptibi lity test by minimum inhibitoryconcentration > NRG Levofloxacin susceptibility test by minimum inhibitory concentration <= NRG Ampicillin susceptibility test by minimum inhibitory c oncentration > NRG Cefazolin susceptibility test by minimum inhibitory co ncentration > NRG Ceftriaxone susceptibility test by minimum inhibitory concentration <= NRG Ciprofloxacin susceptibility test by minimum inhibitor y concentration 1 NRG Meropenem susceptibility test by minimum inhibitory co ncentration <= NRG Nitrofurantoin susceptibility test by mi nimum inhibitory concentration <= NRG Amoxicillin and clavulanate potassium susc ISELA = NRG Sickle cell disease screening test - 10:00 Sickle cell disease screening test Negative NRG Complete blood count (CBC) with automate d white blood cell (WBC) differential - 01/23/19 10:22 Blood leukocytes automated count (number/volume) 11.1 10*3/uL 4.3-11.0 Blood erythrocytes automated count (number/volume) 4.17 10*6/uL 4.35-5.85 Venous blood hemoglobin measurement (mass/volume) 13.6 g/dL 13.3-17.7 Blood hematocrit (volume fraction) 40 % 40-54 Automated erythrocyte mean corpuscular volume 96 [ foz_us] 80-99 Automated erythrocyte mean corpuscular h emoglobin (mass per erythrocyte) 33 pg 25-34 Automated erythrocyte mean corpuscular h emoglobin concentration measurement (mass/volume) 34 g/dL 32-36 Automated erythrocyte distribution width ratio 13. 7 % 10.0- 14.5 Automated blood platelet count (count/volume) 284 10*3/uL 130-400 Automated blood platelet mean volume measurement 10.1 [foz_us] 7.4-10.4 Automated blood neutrophils/100 leukocytes 66 % 42-75 Automated blood lymphocytes/100 leukocytes 23 % 12-44 Blood monocytes/100 leukocytes 9 % 0-12 Automated blood eosinophils/100 leukocytes 2 % 0-10 Automated blood basophils/100 leukocytes 0 % 0-10 Blood neutrophils automated count (number/volume) 7.4 10*3 1.8-7.8 Blood lymphocytes automated count (number/volume) 2.5 10*3 1.0-4.0 Blood monocytes automated count (number/volume) 1. 0 10*3 0.0-1.0 Automated eosinophil count 0.2 10*3/uL 0 .0-0.3 Automated blood basophil count (count/volume) 0.0 10*3/uL 0.0-0.1 Comprehensive metabolic panel - 01/23/19 10:22 Serum or plasma sodium measurement (moles/volume) 139 mmol/L 135-145 Serum or plasma potassium measurement (moles/volume) 4.9 mmol/L 3.6-5.0 Serum or plasma chloride measurement (moles/volume) 105 mmol/L 98-107 Carbon dioxide 29 mmol/L 21-32 Serum or plasma anion gap determination (moles/volume) 5 mmol/L 5-14 Serum or plasma urea nitrogen measurement (mass/volume ) 16 mg/dL 7-18 Serum or plasma creatinine measurement (mass/volume) 1.11 mg/dL 0.60-1.30 Serum or plasma urea nitrogen/creatinine mass ratio 14 NRG Serum or plasma creatinine measurement w ith calculation of estimated glomerular filtration rate > NRG Serum or plasma glucose measurement (mass/volume) 79 mg/dL 70-105 Serum or plasma calcium measurement (mass/volume) 9.6 mg/dL 8.5-10.1 Serum or plasma total bilirubin measurement (mass/volu me) 0.2 mg/dL 0.1-1.0 Serum or plasma alkaline phosphatase seven surement (enzymatic activity/volume) 83 U/L 40-136 Serum or plasma aspartate aminotransfera se measurement (enzymatic activity/volume) 13 U/L 5-34 Serum or plasma alanine aminotransferase measurement (enzymatic activity/volume) 19 U/L 0-55 Serum or plasma protein measurement (mass/volume) 6.7 g/dL 6.4-8.2 Serum or plasma albumin measurement (mass/volume) 3.9 g/dL 3.2-4.5 CALCIUM CORRECTED 9.7 mg/dL 8.5-10.1 [facility] - 04/15/19 11:51 GLUCOSE 101 mg/dL 65-99 UREA NITROGEN (BUN) 13 mg/dL 7-25 CREATININE 1.14 mg/dL 0.60-1.35 eGFR NON-AFR. HUNGARIAN 81 mL/min/1.73m2 > OR = 60 eGFR 94 mL/min/1.73m2 > OR = 60 BUN/CREATININE RATIO NOT APPLICABLE (calc) 6-22 SODIUM 140 mmol/L 135-146 POTASSIUM 4.4 mmol/L 3.5-5.3 CHLORIDE 108 mmol/L 98-110 CARBON DIOXIDE 27 mmol/L 20-32 CALCIUM 9.2 mg/dL 8.6-10.3 PROTEIN, TOTAL 6.4 g/dL 6.1-8.1 ALBUMIN 4.2 g/dL 3.6-5.1 GLOBULIN 2.2 g/dL (calc) 1.9-3.7 ALBUMIN/GLOBULIN RATIO 1.9 (calc) 1.0-2. 5 BILIRUBIN, TOTAL 0.4 mg/dL 0.2-1.2 ALKALINE PHOSPHATASE 72 U/L 40-115 AST 19 U/L 10-40 ALT 16 U/L 9-46 CBC - 04/15/19 11:51 WHITE BLOOD CELL COUNT 7.8 Thousand/uL 3 .8-10.8 RED BLOOD CELL COUNT 3.91 Million/uL 4.2 0-5.80 HEMOGLOBIN 12.4 g/dL 13.2-17.1 HEMATOCRIT 36.4 % 38.5-50.0 MCV 93.1 fL 80.0-100.0 MCH 31.7 pg 27.0-33.0 MCHC 34.1 g/dL 32.0-36.0 RDW 13.4 % 11.0-15.0 PLATELET COUNT 249 Thousand/uL 140-400 MPV 10.9 fL 7.5-12.5 ABSOLUTE NEUTROPHILS 4859 cells/uL 1500- 7800 ABSOLUTE LYMPHOCYTES 1958 cells/uL 850-3 900 ABSOLUTE MONOCYTES 733 cells/uL 200-950 ABSOLUTE EOSINOPHILS 179 cells/uL 15-500 ABSOLUTE BASOPHILS 70 cells/uL 0-200 NEUTROPHILS 62.3 % NRG LYMPHOCYTES 25.1 % NRG MONOCYTES 9.4 % NRG EOSINOPHILS 2.3 % NRG BASOPHILS 0.9 % NRG HIV 1/2 ANTIGEN/ANTIBODY,FOURTH GENERATI ON W/RFL - 05/08/19 14:19 HIV AG/AB, 4TH GEN NON-REACTIVE NON-JARRET CTIVE HEPATITIS PANEL, GENERAL - 05/08/19 14:1 9 HEPATITIS B SURFACE ANTIGEN NON-REACTIVE NON-REACTIVE HEPATITIS C ANTIBODY NON-REACTIVE NON-R EACTIVE SIGNAL TO CUT-OFF 0.02 <1.00 HEPATITIS B SURFACE ANTIBODY QL REACTIVE NON-REACTIVE HEPATITIS B CORE AB TOTAL NON-REACTIVE NON-REACTIVE HEPATITIS A AB, TOTAL NON-REACTIVE NON- REACTIVE Encounters ACCT No. Visit Date/Time Discharge Status Pt. Type Provider Facility Loc./Unit Complaint [id number] 12/29/2019 10:25:00 ACT Outpatient [facility] [id number] 04/15/2019 09:40:00 Document Registration [id number] 09/19/2014 13:37:00 09/19/2014 23:59: 59 CLS Outpatient MILAGROS ANGUIANOJENNY [id number] 01/23/2019 09:34:00 11:13:00 DIS Outpatient ALICE TAVAREZ MD [facility] ER ERECTILE PROBLE MS [id number] 01/07/2019 18:09:00 21:04:00 DIS Emergency PERLA NGUYEN [facility] ER SIDE PAIN [id number] 11/02/2018 19:40:00 19:51:00 DIS Emergency MARIMAR ALEX APRN [facility] ER L KNEE PAIN,SUBSTANCE A BUSE [id number] 10/14/2013 10:07:00 11:38:00 DIS Emergency ALEN EARLY DO a [facility] ER LEFT SIDE FACIAL NUMBNE [id number] 05/08/2019 13:20:00 05/08/2019 23:59:5 9 CLS Outpatient Gladis Vee [facility] [id number] 05/08/2019 13:20:00 Document Registration
--- OUTSIDE RECORDS SUMMARY | 2020-01-01 02:19 | XMS REPORT ---
Author Author Malick LINARES Organization [facility] Address [address] [place] [address] Care Team Providers Care Wic Site Coordinator Name Role Phone JENNY LINARES Unavailable PROBLEMS Type Condition ICD9-CM Code OME65-NA Code Onset Dates Condition S tatus SNOMED Code Problem Dysuria 788.1 Active [id number] ALLERGIES No Information ENCOUNTERS Encounter Location Date Diagnosis [facility] [address] [place], [place] [id number] 57 16 Mar, 2019 Onychomycosis B35.1 and Tinea pedis of both feet B35.3 [facility] [address] [address] Dec, Dysuria R30.0 ; History of U TI Z87.440 ; History of nephrolithiasis Z87.442 and Homelessness Z59.0 [facility] [address] [address] Dec, Hematuria, unspecified type R31.9 [facility] [address] [address] Nov, Acute bronchitis, unspecifie d organism J20.9 and Fever R50.9 [facility] [address] [place] [id number] [address] [place] [phone] Aug, Worms in stool B83.[address] [address] Dec, [facility] [address] [place] [id number] [place] [address] Dec, [place] [address] [address] Nov, [facility] [address] [id number] [address] [place] [phone] Nov, [facility] [address] [id number] [address] [place] [phone] Nov, [facility] [address] [id number] [address] [place] [phone] Nov, [facility] [address] [id number] [address] [place] [phone] Oct, [facility] [address] [id number] [address] [place] [phone] Oct, [facility] [address] [id number] [address] [place] [phone] Aug, [facility] [address] [id number] [address] [place] [phone] Aug, [facility] [address] [id number] [address] [place] [phone] Aug, IMMUNIZATIONS No Known Immunizations SOCIAL HISTORY Never Assessed REASON FOR VISIT PLAN OF CARE VITAL SIGNS Height 70 in 2014-09-19 Temperature 97.4 degrees Fahrenheit 2014-09-19 Heart Rate 88 bpm 2014-09-19 Respiratory Rate 20 2014-09-19 Blood pressure systolic 116 mmHg 2014-09-19 Blood pressure diastolic 76 mmHg 2014-09-19 MEDICATIONS Unknown Medications RESULTS No Results PROCEDURES Procedure Date Ordered Result Body Site URINE CULTURE/COLONY COUNT Sep 19, 2014 URINALYSIS, AUTO, W/O SCOPE Sep 19, 2014 INSTRUCTIONS MEDICATIONS ADMINISTERED No Known Medications MEDICAL (GENERAL) HISTORY Type Description Date Medical History 2006 TB, treated Medical History bipolar Surgical History T & A as a child
--- OUTSIDE RECORDS SUMMARY | 2020-01-01 02:19 | XMS REPORT ---
Author Author Malick Vee Organization [facility] Address 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 A ctive ALLERGIES No Information ENCOUNTERS Encounter [facility] [place] [address] [place] [id number] May, [place] [address] [place] [id number] May, No diagnosis on [place] I Z03.89 [place] [address] [place] [id number] May, 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
== END 2020-01-01 02:25 | disposition left against medical advice (07) ==
LOC: EDUNIT# 02:10 → ER 02:13
DX: R05 Cough (principal); Z53.9 Procedure and treatment not carried out, unspecified reason
CPT/HCPCS: 99281

== ENCOUNTER 2020-04-18 14:45 | Emergency (ER) | payer SELFPAY ==
[~2020-04-18] VITALS: Ht 177.8 cm; Wt 72.5 kg
[2020-04-18] MEDS ORDERED: LORazepam INJ 2 MG/ML (ATIVAN) VIAL ONE (14:51)
[2020-04-18] MEDS ORDERED: HALOPERIDOL 5 MG/ML (HALDOL) VIAL ONE (14:51)
[2020-04-18] MEDS ORDERED: LACTATED RINGERS 1,000 ML IV ONE ×3 (14:51→16:17)
[2020-04-18] MEDS ORDERED: diphenhydrAMINE 50 MG/ML INJ (BENADRYL) ONE (14:51)
--- NOTE | 2020-04-18 14:51 | NUR ---
Zip tie removed by Dr. Davis.
--- OUTSIDE RECORDS SUMMARY | 2020-04-18 14:52 | XMS REPORT ---
Author Author Malick LEMUS Organization [facility] Address [address] [place] [address] Care Team Providers Care Machine Dyer Name Role Phone RAFAEL LEMUS Unavailable PROBLEMS Type Condition ICD9-CM Code OCI73-BL Code Onset Dates Condition S tatus SNOMED Code Problem Dysuria 788.1 Active [id number] ALLERGIES No Information ENCOUNTERS Encounter Location Date Diagnosis [facility] [address] [phone] Nov, General medical examination Z00.[address] [address] May, [facility] [address] [place], [place] [id number] 57 16 Mar, 2019 Onychomycosis B35.1 and Tinea pedis of both feet B35.3 [facility] [address] [place] [phone] Dec, Dysuria R30.0 ; History of U TI Z87.440 ; History of nephrolithiasis Z87.442 and Homelessness Z59.0 [facility] [address] [place] [id number] [address] [place] [phone] Dec, Hematuria, unspecified type R31.9 [facility] [address] [place] [id number] [address] [place] [phone] Nov, Acute bronchitis, unspecifie d organism J20.9 and Fever R50.9 [facility] [address] [place] [id number] [address] [place] [phone] Aug, Worms in stool B83.9 [place] [id number] [place] [phone] Dec, [facility] [address] [id number] [address] [place] [phone] Dec, [facility] [address] [id number] [address] [place] [phone] Nov, [facility] [address] [id number] [address] [place] [phone] Nov, [facility] [address] [id number] [address] [place] [phone] Nov, [facility] [address] [id number] [address] [place] [phone] Nov, [facility] [address] [id number] [address] [place] [phone] Oct, [facility] [address] [id number] [address] [place] [phone] Oct, [facility] [address] [id number] [address] [place] [phone] Aug, [facility] [address] [id number] [address] [place] [phone] Aug, [facility] [address] [id number] [address] [place] [phone] Aug, IMMUNIZATIONS No Known Immunizations SOCIAL HISTORY Never Assessed REASON FOR VISIT PLAN OF CARE VITAL SIGNS MEDICATIONS No Known Medications RESULTS No Results PROCEDURES No Known procedures INSTRUCTIONS MEDICATIONS ADMINISTERED No Known Medications MEDICAL (GENERAL) HISTORY Type Description Date Medical History 2006 TB, treated Medical History bipolar Medical History COPD Surgical History T & A as a child
--- OUTSIDE RECORDS SUMMARY | 2020-04-18 14:52 | XMS REPORT | Continuity of Care Document ---
Author Organization Unknown Address Unknown Phone Unavailable Allergies Active Description Code Type Severity Reaction Onset Reported/Identified Relationship to Patient Clinical Status Yes No Known Drug Allergies [id number] Drug Allergy Unknown N/A 10/14/2013 Medications There is no data. 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 10/14/2013 ALEN EARLY DO Ot 782.0 SKIN SENSATION DISTURB 09/19/2014 JENNY LINARES APRN 788.1 DYSURIA 07/03/2018 UNLISTED, UNLISTED A V70. 5 HEALTH EXAMINATION OF DEFINED SUBPOPULATIONS 07/03/2018 UNLISTED, UNLISTED A Z02. 1 ENCOUNTER FOR PRE-EMPLOYMENT EXAMINATION 11/02/2018 MARIMAR ALEX APRN Ot F19.10 OTHER PSYCHOACTIVE SUBSTANCE ABUSE, UNCO 11/02/2018 MARIMAR ALEX APRN Ot M25.562 PAIN IN LEFT KNEE 11/02/2018 MARIMAR ALEX APRN Ot Z59 .0 HOMELESSNESS 11/02/2018 MARIMAR ALEX APRN Ot Z79.52 FDC (CURRENT) USE OF SYSTEMIC STER 11/05/2018 MARIMAR ALEX APRN Ot F19.10 OTHER PSYCHOACTIVE SUBSTANCE ABUSE, UNCO 11/05/2018 MARIMAR ALEX APRN Ot M25.562 PAIN IN LEFT KNEE 11/05/2018 MARIMAR ALEX APRN Ot Z59 .0 HOMELESSNESS 11/05/2018 MARIMAR ALEX APRN Ot Z79.52 FDC (CURRENT) USE OF SYSTEMIC STER 01/07/2019 PERLA NGUYEN Ot F12.10 CANNABIS ABUSE, UNCOMPLICATED 01/07/2019 PERLA NGUYEN Ot F15.10 OTHER STIMULANT ABUSE, UNCOMPLICATED 01/07/2019 PERLA NGUYEN Ot F17.200 NICOTINE DEPENDENCE, UNSPECIFIED, UNCOMP 01/07/2019 PERLA NGUYEN Ot N39.0 URINARY TRACT INFECTION, SITE NOT SPECIF 01/07/2019 PERLA NGUYEN Ot R31.9 HEMATURIA, UNSPECIFIED 01/09/2019 BERNRASHID PERLA Ot F12.10 CANNABIS ABUSE, UNCOMPLICATED 01/09/2019 BERNRASHID PERLA Ot F15.10 OTHER STIMULANT ABUSE, UNCOMPLICATED 01/09/2019 BERNRASHID PERLA Ot F17.200 NICOTINE DEPENDENCE, UNSPECIFIED, UNCOMP 01/09/2019 EPI NGUYENIS Ot N39.0 URINARY TRACT INFECTION, SITE NOT SPECIF 01/09/2019 PERLA NGUYEN Ot R31.9 HEMATURIA, UNSPECIFIED 01/23/2019 CORBY JASSO, ALICE T Ot F10.10 ALCOHOL ABUSE, UNCOMPLICATED 01/23/2019 CORBY JASSO, ALICE T Ot F12.10 CANNABIS ABUSE, UNCOMPLICATED 01/23/2019 CORBY JASSO, ALICE T Ot F15.10 OTHER STIMULANT ABUSE, UNCOMPLICATED 01/23/2019 CORBY JASSO, ALICE T Ot N48.30 PRIAPISM, UNSPECIFIED 01/25/2019 CORBY JASSO, ALICE T Ot F10.10 ALCOHOL ABUSE, UNCOMPLICATED 01/25/2019 CORBY JASSO, ALICE T Ot F12.10 CANNABIS ABUSE, UNCOMPLICATED 01/25/2019 CORBY JASSO, ALICE T Ot F15.10 OTHER STIMULANT ABUSE, UNCOMPLICATED 01/25/2019 CORBY AJSSO, ALICE T Ot N48.30 PRIAPISM, UNSPECIFIED 01/02/2020 YULIANA JASSO, SHERON Baird Ot R05 COUGH 01/02/2020 YULIANA JASSO, SHERON Baird Ot Z53. 9 PROCEDURE AND TREATMENT NOT CARRIED OUT, Procedures Code Description [place] [address] UA L YAZ DIP 09/19/2014 73216 CULT URE URINE 09/22/2014 Results Test Result Range - 07/03/18 13:36 Glass Vial Filler Anatyeimi Francisco Donor ID By Employer Representitive Location [facility] Reason For Test Random Temperature In Range YES Deg F 90.00-100 .00 Urine Amphetamines Confirmatory Testing Subm itted to [facility] Urine Barbiturates NEGATIVE Urine Benzodiazepines NEGATIVE Urine Cocaine NEGATIVE Urine MDMA NEGATIVE Urine Methadone NEGATIVE Urine Methamphetamines Confirmatory Testing Submitted to [facility] Urine Opiates NEGATIVE Urine Oxycodone NEGATIVE Urine PCP NEGATIVE Urine THC Metabolite Confirmatory Testing Wood bmitted to [facility] Complete blood count (CBC) with automate d [...] activit y/volume) 52 U/L 25-125 Lipase - 01/07/19 18:19 Lipase 30 [...] culture - 01/07/19 19:30 Bacterial urine culture [id number] NRG COLONY COUNT >100,000/ML NRG FTX;REPORTABLE SUSCEPTIBILITY [...] g/dL 3.2-4.5 CALCIUM CORRECTED 9.7 mg/dL 8.5-10.1 CMP - 04/15/19 11:51 GLUCOSE 101 mg/dL 65-99 UREA NITROGEN (BUN) 13 mg/dL 7-25 CREATININE 1.14 mg/dL 0.60-1.35 eGFR NON-AFR. ALBANIAN 81 mL/min/1.73m2 > OR = 60 eGFR [...] Status Pt. Type Provider Facility Loc./Unit Complaint [id number] 05/08/2019 13:20:00 05/08/2019 23:59:5 9 CLS Outpatient Gladis Vee [facility] [place] [id number] 05/08/2019 13:20:00 Document Registration [id number] 09/19/2014 13:37:00 09/19/2014 23:59: 59 CLS Outpatient JENNY LINARES APRN [id number] 07/03/2018 13:22:00 07/03/2018 23:59: 00 DIS Outpatient UNLISTED, UNLISTED [id number] 01/01/2020 02:13:00 020 02:25:00 DIS Outpatient YULIANA JASSO, SHERON Baird [facility] ER SOB [id number] 01/23/2019 09:34:00 019 11:13:00 DIS Emergency CORBY JASSO, ALICE Guajardo [facility] ER ERECTILE PROBLE MS [id number] 01/07/2019 18:09:00 019 21:04:00 DIS Emergency PERLA NGUYEN [facility] ER SIDE PAIN [id number] 11/02/2018 19:40:00 02/02/2 019 19:51:00 DIS Emergency MARIMAR ALEX APRN [facility] ER L KNEE PAIN,SUBSTANCE A BUSE [id number] 10/14/2013 10:07:00 014 11:38:00 DIS Emergency ALEN EARLY DO a [facility] ER LEFT SIDE FACIAL NUMBNE [id number] 03/17/2020 13:55:00 03/17/2020 23:59:5 9 [facility] [id number] 04/15/2019 09:40:00 Document Registration
[2020-04-18] MEDS ORDERED: diphenhydrAMINE 50 MG/ML INJ (BENADRYL) IM ONE (15:00)
[2020-04-18] MEDS ORDERED: HALOPERIDOL 5 MG/ML (HALDOL) VIAL IM ONE (15:00)
[2020-04-18] MEDS ORDERED: diphenhydrAMINE 50 MG/ML INJ (BENADRYL) IVP ONE (15:00)
[2020-04-18] MEDS ORDERED: HALOPERIDOL 5 MG/ML (HALDOL) VIAL IV ONE (15:00)
[2020-04-18] MEDS ORDERED: LORazepam INJ 2 MG/ML (ATIVAN) VIAL IVP ONE (15:00)
[2020-04-18] MEDS ORDERED: LORazepam INJ 2 MG/ML (ATIVAN) VIAL IM ONE (15:00)
[2020-04-18 15:03] LABS: BASOPHILS # (AUTO) 0.1 10^3/uL (0.0-0.1); BASOPHILS % (AUTO) 0 % (0-10); EOSINOPHILS # (AUTO) 0.1 10^3/uL (0.0-0.3); EOSINOPHILS % (AUTO) 1 % (0-10); HEMATOCRIT 39 % (40-54); HEMOGLOBIN 13.5 G/DL (13.3-17.7); LYMPHOCYTES # (AUTO) 2.6 X 10^3 (1.0-4.0); LYMPHOCYTES % (AUTO) 19 % (12-44); MEAN CORPUSCULAR HEMOGLOBIN 33 PG (25-34); MEAN CORPUSCULAR HGB CONC 35 G/DL (32-36); MEAN CORPUSCULAR VOLUME 94 FL (80-99); MEAN PLATELET VOLUME 9.9 FL (7.4-10.4); MONOCYTES # (AUTO) 1.5 X 10^3 (0.0-1.0); MONOCYTES % (AUTO) 11 % (0-12); NEUTROPHILS # (AUTO) 9.3 X 10^3 (1.8-7.8); NEUTROPHILS % (AUTO) 68 % (42-75); PLATELET COUNT 253 10^3/uL (130-400); WHITE BLOOD COUNT 13.6 10^3/uL (4.3-11.0)
--- NOTE | 2020-04-18 15:04 | ED GU-Male ---
General Stated Complaint: GENITAL ISSUES Source: police, EMS, old records (ALL PMH IS FROM OLD RECORDS, UNABLE TO OBRAIN ANY INFORMATION FROM PT) Exam Limitations: clinical condition, intoxication History of Present Illness Date Seen by Provider: Apr 18, 2020 Time Seen by Provider: 14:42 Initial Comments PT ARRIVES VIA EMS AND [place] [facility]. PT HAS HAD A ZIP TIE AROUND HIS PENIS FOR > 24 HOURS WAS SEEN YESTERDAY AT [facility] FOR THIS PROBLEM, SENT HERE BY EMS, THEN PT LEFT PT HAS ALSO BEEN HERE TWICE THIS MORNING AND THEN LEFT PT APPEARS TO BE UNDER THE INFLUENCE OF SOME SUBSTANCE/S AND APPEARS PSYCHOTIC -- YELLING, BELLIGERENT, UNCOOPERATIVE, VERY ERRATIC AND NON-SENSICAL SPEECH, CONSTANT MOVEMENTS, TRYING TO ELOPE, ETC. PT IS HOMELESS POLICE ARE VERY FAMILIAR WITH PT, AND HAVE DEALT WITH HIM AT LEAST 5 TIMES ALREADY TODAY FOR ERRATIC AND IN APPROPRIATE BEHAVIOR--PT WEARING A SHORT DRESS/LONG TOP, SOCK, AND NOT WEARING ANY UNDERWEAR, AND EARLIER HAD AN [place]DI[place] FLAG AROUND HIS WAIST--THIS IS NOT PRESENT AT THIS TIME. GENITALS AND BUTTOCKS COMPLETELY EXPOSED. Allergies and Home Medications Allergies Coded Allergies: No Known Drug Allergies (Unverified , 10/14/13) Home Medications Cephalexin 500 Mg Capsule, 500 MG PO TID Prescribed by: PERLA NGUYEN on 01/07/191956 Patient Home Medication List Home Medication List Reviewed: Yes Review of Systems Review of Systems Constitutional: other (UNABLE TO OBTAIN) Past Kjhchyk-Eonuup-Varsco Hx Patient Social History Recreational Drug Use: Yes (THC, METH) Drug of Choice: THC, METH Type Used: Cigarettes 2nd Hand Smoke Exposure: Yes Past Medical History Surgeries: No Respiratory: No Cardiac: No Neurological: No Reproductive Disorders: Yes (priapism) Genitourinary: Yes (priapism) Gastrointestinal: No Musculoskeletal: No Endocrine: No Cancer: No Psychosocial: No Integumentary: No Blood Disorders: No Physical Exam Vital Signs Vital Signs - First Documented 04/18/20 04/18/20 14:58 15:04 Temp 36.4 Pulse 98 Resp 19 B/P (MAP) 130/92 (105) Pulse Ox 99 O2 Delivery Nasal Cannula O2 Flow Rate 2.00 Capillary Refill : Height, Weight, BMI Height: 5'10.00" Weight: 160lbs. oz. 72.114820cm; 30.00 BMI Method:Stated General Appearance: thin, other (PT WITH VERY ERRATIC BEHAVIOR AND SPEECH--SPEECH IS NON-SENSICAL, DOES NOT FOLLOW COMMANDS, YELLING, BELLIGERENT, UNCOOPERATIVE, CURSING. FILTHY, MALODOROUS, UNKEMPT. ) Cardiovascular: tachycardia Respiratory: no respiratory distress Gastrointestinal: soft Male: other (ZIP TIE NEAR BASE OF PENIS, WITH MARKED EDEMA TO PENIS DISTAL TO THE ZIP TIE, HEAD OF PENIS IS DUSKY TO DARK PINK, WITH TISSUE TO SHAFT OF PENIS VERY ECCHYMOTIC AND HAVING APPEARANCE OF NECROSIS WITH MACERATION --CIRCUMFERENTIALLY TO ENTIRE SHAFT. NO BLOOD AT MEATUS. TESTICLES APPEAR NORMAL. ) Neurologic/Psychiatric: no motor/sensory deficits (GROSSLY INTACT, BUT UNABLE TO FOLLOW COMMANDS. ), alert, other (BEHAVIOR/MENTATION ABOVE--SPEECH IS CLEAR BUT NON-SENSICAL. ) Skin: rash (DIFFUSE RASH--DISCRETE ERYTHMATOUS PAPULES OVER ENTIRE BODY, SPARING FACE/HEAD), tattoos/piercings Progress/Results/Core Measures Suspected Sepsis SIRS Temperature: Pulse: Respiratory Rate: Laboratory Tests 04/18/20 14:59: White Blood Count 13.6H Blood Pressure / Mean: Laboratory Tests 04/18/20 14:59: Creatinine 1.57H, INR Comment 1.2, Platelet Count 253, Total Bilirubin 1.3H Results/Orders Lab Results Laboratory Tests Test 04/18/20 14:59 04/18/20 15:48 Range/Units White Blood Count 13.6 H 4.3-11.0 10^3/uL Red Blood Count 4.15 L 4.35-5.85 10^6/uL Hemoglobin 13.5 13.3-17.7 G/DL Hematocrit 39 L 40-54 % Mean Corpuscular Volume 94 80-99 FL Mean Corpuscular Hemoglobin 33 25-34 PG Mean Corpuscular Hemoglobin Concent 35 32-36 G/DL Red Cell Distribution Width 14.0 10.0-14.5 % Platelet Count 253 130-400 10^3/uL Mean Platelet Volume 9.9 7.4-10.4 FL Neutrophils (%) (Auto) 68 42-75 % Lymphocytes (%) (Auto) 19 12-44 % Monocytes (%) (Auto) 11 0-12 % Eosinophils (%) (Auto) 1 0-10 % Basophils (%) (Auto) 0 0-10 % Neutrophils # (Auto) 9.3 H 1.8-7.8 X 10^3 Lymphocytes # (Auto) 2.6 1.0-4.0 X 10^3 Monocytes # (Auto) 1.5 H 0.0-1.0 X 10^3 Eosinophils # (Auto) 0.1 0.0-0.3 10^3/uL Basophils # (Auto) 0.1 0.0-0.1 10^3/uL Prothrombin Time 15.3 H 12.2-14.7 SEC INR Comment 1.2 0.8-1.4 Activated Partial Thromboplast Time 29 24-35 SEC Sodium Level 142 135-145 MMOL/L Potassium Level 4.1 3.6-5.0 MMOL/L Chloride Level 109 H 98-107 MMOL/L Carbon Dioxide Level 19 L 21-32 MMOL/L Anion Gap 14 5-14 MMOL/L Blood Urea Nitrogen 21 H 7-18 MG/DL Creatinine 1.57 H 0.60-1.30 MG/DL Estimat Glomerular Filtration Rate 49 BUN/Creatinine Ratio 13 Glucose Level 83 70-105 MG/DL Calcium Level 9.8 8.5-10.1 MG/DL Corrected Calcium 9.4 8.5-10.1 MG/DL Total Bilirubin 1.3 H 0.1-1.0 MG/DL Aspartate Amino Transf (AST/SGOT) 28 5-34 U/L Alanine Aminotransferase (ALT/SGPT) 20 0-55 U/L Alkaline Phosphatase 103 40-136 U/L Total Creatine Kinase 311 H 30-200 U/L Creatine Kinase MB 4.9 <6.6 NG/ML Myoglobin 143.0 H 10.0-92.0 NG/ML Total Protein 7.6 6.4-8.2 GM/DL Albumin 4.5 3.2-4.5 GM/DL Serum Alcohol < 10 <10 MG/DL Urine Color YELLOW Urine Clarity CLEAR Urine pH 5.5 5-9 Urine Specific [place] >=1.030 1.016-1.022 Urine Protein NEGATIVE NEGATIVE Urine Glucose (UA) NEGATIVE NEGATIVE Urine Ketones NEGATIVE NEGATIVE Urine Nitrite NEGATIVE NEGATIVE Urine Bilirubin NEGATIVE NEGATIVE Urine Urobilinogen 0.2 < = 1.0 MG/DL Urine Leukocyte Esterase 1+ H NEGATIVE Urine RBC (Auto) NEGATIVE NEGATIVE Urine RBC NONE /HPF Urine WBC 10-25 H /HPF Urine Squamous Epithelial Cells NONE /HPF Urine Crystals PRESENT H /LPF Urine Amorphous Sediment FEW DOROTHY URATES H /LPF Urine Bacteria MODERATE H /HPF Urine Casts NONE /LPF Urine Mucus NEGATIVE /LPF Urine Culture Indicated YES Urine Opiates Screen NEGATIVE NEGATIVE Urine Oxycodone Screen NEGATIVE NEGATIVE Urine Methadone Screen NEGATIVE NEGATIVE Urine Propoxyphene Screen NEGATIVE NEGATIVE Urine Barbiturates Screen NEGATIVE NEGATIVE Ur Tricyclic Antidepressants Screen NEGATIVE NEGATIVE Urine Phencyclidine Screen NEGATIVE NEGATIVE Urine Amphetamines Screen POSITIVE H NEGATIVE Urine Methamphetamines Screen POSITIVE H NEGATIVE Urine Benzodiazepines Screen NEGATIVE NEGATIVE Urine Cocaine Screen NEGATIVE NEGATIVE Urine Cannabinoids Screen POSITIVE H NEGATIVE My Orders Orders - ALEN EARLY DO Diphenhydramine Injection (Benadryl Inje (04/18/20 14:51) Haloperidol Injection (Haldol Injectio (04/18/20 14:51) Lorazepam Injection (Ativan Injection) (04/18/20 14:51) Ed Iv/Invasive Line Start (04/18/20 14:54) Monitor-Rhythm Ecg Trace Only (04/18/20 14:54) Alcohol (04/18/20 14:54) Cbc With Automated Diff (04/18/20 14:54) Comprehensive Metabolic Panel (04/18/20 14:54) Drug Screen Stat (Urine) (04/18/20 14:54) Protime With Inr (04/18/20 14:54) Partial Thromboplastin Time (04/18/20 14:54) Ua Culture If Indicated (04/18/20 14:54) Ed Iv/Invasive Line Start (04/18/20 14:54) Lactated Ringers (Lr 1000 Ml Iv Solution (04/18/20 14:54) Lactated Ringers (Lr 1000 Ml Iv Solution (04/18/20 14:51) Haloperidol Injection (Haldol Injectio (04/18/20 15:00) Diphenhydramine Injection (Benadryl Inje (04/18/20 15:00) Lorazepam Injection (Ativan Injection) (04/18/20 15:00) Haloperidol Injection (Haldol Injectio (04/18/20 15:00) Diphenhydramine Injection (Benadryl Inje (04/18/20 15:00) Lorazepam Injection (Ativan Injection) (04/18/20 15:00) Bladder Scan (04/18/20 15:06) Creatine Kinase (04/18/20 15:18) Creatine Kinase Mb (04/18/20 15:18) Myoglobin Serum (04/18/20 15:18) Lidocaine 2% (Urojet) (Xylocaine Urojet) (04/18/20 15:45) Lidocaine 2% (Urojet) (Xylocaine Urojet) (04/18/20 15:37) Urine Culture (04/18/20 15:48) Ed Iv/Invasive Line Start (04/18/20 16:17) Lactated Ringers (Lr 1000 Ml Iv Solution (04/18/20 16:17) Medications Given in ED Current Medications Medications Dose Ordered Sig/Anabell Route Start Time Stop Time Status Last Admin Dose Admin Diphenhydramine HCl 50 mg ONCE ONCE IM 04/18/20 15:00 04/18/20 15:01 DC 04/18/20 14:52 50 MG Diphenhydramine HCl 50 mg ONCE ONCE IVP 04/18/20 15:00 04/18/20 15:01 DC 04/18/20 14:50 50 MG Haloperidol Lactate 5 mg ONCE ONCE IM 04/18/20 15:00 04/18/20 15:01 DC 04/18/20 14:52 5 MG Haloperidol Lactate 5 mg ONCE ONCE IV 04/18/20 15:00 04/18/20 15:01 DC 04/18/20 14:50 5 MG Lactated Ringer's 1,000 ml @ 0 mls/hr Q0M ONCE IV 04/18/20 14:54 04/18/20 14:56 DC 04/18/20 14:50 1,000 MLS/HR Lactated Ringer's 1,000 ml @ 0 mls/hr Q0M ONCE IV 04/18/20 16:17 04/18/20 16:19 DC 04/18/20 16:20 1,000 MLS/HR Lidocaine HCl 10 ml ONCE ONCE TOP 04/18/20 15:45 04/18/20 15:46 DC 04/18/20 15:45 10 ML Lorazepam 2 mg ONCE ONCE IM 04/18/20 15:00 04/18/20 15:01 DC 04/18/20 14:52 2 MG Lorazepam 2 mg ONCE ONCE IVP 04/18/20 15:00 04/18/20 15:01 DC 04/18/20 14:50 2 MG Vital Signs/I&O 04/18/20 04/18/20 14:58 15:04 Temp 36.4 Pulse 98 Resp 19 B/P (MAP) 130/92 (105) Pulse Ox 99 94 O2 Delivery Nasal Cannula Room Air O2 Flow Rate 2.00 Capillary Refill : Progress Note : Progress Note PT PLACED IN 4 POINT LEATHER RESTRAINTS, AND GIVEN HALDOL, BENADRYL, ATIVAN WITH ADEQUATE SEDATIVE EFFECT FOR REMAINDER OF ER STAY. LEATHER RESTRAINTS REMOVED ONCE PT WAS SEDATED. PT MAINTAINING AIRWAY AND O2 SATS NO DETERIORATION IN PT'S CONDITION DURING ER STAY ZIP TIE EASILY REMOVED WITH WIRE CUTTERS HEAD OF PENIS IS NOW PINK WITH GOOD CAPILLARY REFILL. TISSUE OF SHAFT STILL ECCHYMOTIC/NECROTIC AND MACERATED WITH SOME SLIGHT OOZING OF SEROUS FLUID BLADDER SCAN DONE--342 ML URINE KING PLACEMENT HELD, PENDING DISCUSSION WITH UROLOGIST. KING PLACED AFTER RECOMMENDATION FROM UROLOGIST WITH RETURN OF CLEAR URINE ECG Initial ECG Impression Date: Apr 18, 2020 Initial ECG Impression Time: 15:01 Initial ECG Rate: 95 Initial ECG Rhythm: Normal Sinus Departure Communication (Admissions) NO UROLOGIST AVAILABLE HERE AT THIS BE[place] 1452--CALLED CINDY, NO BEDS/ON DIVERSION 1453--CALLED [facility]. ALIRIO UROLOGIST. 1514--CALLED [facility]. ALIRIO UROLOGIST. 1522--SPOKE WITH DR. GERMAN, WITH [facility], HE ADVISED TO SEND TO , IT IS BEYOND HIS SCOPE OF PRACTICE. 1526--SPOKE WITH DR. SAUCEDO, UROLOGIST WITH . HE ADVISES TO PLACE KING CATHETER, HE DECLINES TRANSFER, AND STATES IT CAN BE MANAGED AN OUTPATIENT OR CAN ADMIT HERE TO GENERAL SURGEON. 1533--SPOKE WITH DR. FRANCO, GENERAL SURGEON, HE DOES NOT FEEL COMFORTABLE TAKING PT , BUT WILL SEE PT IN CONSULT IF ADMITTED TO HOSPITALIST, AND DR. DE LA TORRE TO BE CONSULTED TOMORROW 1539--SPOKE WITH DR. MOTT, HOSPITALIST, ADVISES THAT PT IS [facility] PT. 1542--SPOKE WITH DR. SAMPSON, HOSPITALIST FOR [facility]. SHE WILL ADMIT PT, IF OK WITH DR. DE LA TORRE. 1551--CONTACTED DR. DE LA TORRE, HE ADVISES THAT HIS IS BEYOND HIS SCOPE OF PRACTICE AND ADVISES TRANSFER 1554--CALLED [facility], SPOKE WITH DR. SALEH, ER PHYSICIAN, ACCEPTS PT FOR TRANSFER 1600--SPOKE WITH DR. SAMPSON AND INFORMED HER THAT PT WOULD NOT BE ADMITTED HERE. 1725--EMS HERE FOR TRANSPORT Impression Primary Impression: ZIP TIE TO PENIS Additional Impressions: PENILE TISSUE NECROSIS Psychosis Scabies Illicit drug use Methamphetamine use Disposition: 02 XFER SHT-TRM HOSP Condition: Improved Transfer Transfer Reason: Exceeds level of care Transfer Facility: [facility]. [place], [place] Method of Transfer: EMS Departure-Patient Inst. Referrals: [facility] (PCP/Family) Primary Care Physician ALEN EARLY DO Apr 18, 2020 15:04
--- NOTE | 2020-04-18 15:05 | NUR ---
Restraints released, ROM performed, pt repositioned, restraints reapplied.
[2020-04-18 15:14] LABS: ALBUMIN 4.5 GM/DL (3.2-4.5); CHLORIDE 109 MMOL/L (98-107); INR 1.2 (0.8-1.4); POTASSIUM 4.1 MMOL/L (3.6-5.0); PROTHROMBIN TIME PATIENT 15.3 SEC (12.2-14.7); SODIUM 142 MMOL/L (135-145)
[2020-04-18 15:15] LABS: CALCIUM 9.8 MG/DL (8.5-10.1)
[2020-04-18 15:16] LABS: GLUCOSE 83 MG/DL (70-105); TOTAL PROTEIN 7.6 GM/DL (6.4-8.2)
[2020-04-18 15:17] LABS: CARBON DIOXIDE 19 MMOL/L (21-32)
[2020-04-18 15:18] LABS: BILIRUBIN,TOTAL 1.3 MG/DL (0.1-1.0)
[2020-04-18 15:20] LABS: ALKALINE PHOSPHATASE 103 U/L (40-136); CREATININE SERUM 1.57 MG/DL (0.60-1.30); GFR ESTIMATED 49
--- NOTE | 2020-04-18 15:20 | NUR ---
Restraints released, ROM performed, pt repositioned, restraints reapplied.
[2020-04-18 15:21] LABS: BUN/CREATININE RATIO 13
[2020-04-18 15:23] LABS: ALANINE AMINOTRANSFERASE 20 U/L (0-55)
--- NOTE | 2020-04-18 15:26 | NUR ---
Restraints removed at this time.
[2020-04-18] MEDS ORDERED: LIDOCAINE UROJET 2% GEL 10 ML PKG ONE (15:37)
[2020-04-18] MEDS ORDERED: LIDOCAINE UROJET 2% GEL 10 ML PKG TOP ONE (15:45)
[2020-04-18 15:47] LABS: CREATINE KINASE MB 4.9 NG/ML (<6.6)
[2020-04-18 15:54] LABS: BILIRUBIN,URINE NEGATIVE (NEGATIVE); CLARITY,URINE CLEAR; COLOR,URINE YELLOW; GLUCOSE, URINE (UA) NEGATIVE (NEGATIVE); KETONES,URINE NEGATIVE (NEGATIVE); LEUKOCYTE ESTERASE ,URINE 1+ (NEGATIVE); NITRITE,URINE NEGATIVE (NEGATIVE); PH,URINE 5.5 (5-9); PROTEIN,URINE NEGATIVE (NEGATIVE)
[2020-04-18 16:02] LABS: AMORPHOUS SEDIMENT,UR FEW AMOR URATES /LPF; BACTERIA,URINE MODERATE /HPF
--- NOTE | 2020-04-18 16:05 | NUR ---
[facility] EMS Captain notified of transfer at this time.
[2020-04-18 16:06] LABS: AMPHETAMINE SCREEN, URINE POSITIVE (NEGATIVE); BARBITURATE SCREEN URINE NEGATIVE (NEGATIVE); BENZODIAZEPINES SCREEN URINE NEGATIVE (NEGATIVE); CANNABINOID SCREEN, URINE POSITIVE (NEGATIVE); COCAINE SCREEN URINE NEGATIVE (NEGATIVE); METHADONE STAT NEGATIVE (NEGATIVE); METHAMPHETAMINE SCREEN URINE S POSITIVE (NEGATIVE); OPIATE SCREEN URINE NEGATIVE (NEGATIVE); OXYCODONE STAT NEGATIVE (NEGATIVE); PROPOXYPHENE STAT NEGATIVE (NEGATIVE); TRICYCLIC ANTIDEPRESSANTS SCRE NEGATIVE (NEGATIVE)
--- NOTE | 2020-04-18 16:11 | NUR ---
Dispatch called at this time.
--- NOTE | 2020-04-18 16:57 | NUR ---
Pt resting comfortably in bed at this time. Will continue to monitor.
[2020-04-18 17:36] VITALS: BP 118/86
== END 2020-04-18 17:44 | disposition short-term general hospital (02) ==
LOC: EDUNIT# 14:45 → ER 14:47
DX: N48.89 Other specified disorders of penis (principal); I96 Gangrene, not elsewhere classified; F29 Unspecified psychosis not due to a substance or known physiological condition; B86 Scabies; F12.10 Cannabis abuse, uncomplicated; F15.90 Other stimulant use, unspecified, uncomplicated; Z77.22 Contact with and (suspected) exposure to environmental tobacco smoke (acute) (chronic); Z87.438 Personal history of other diseases of male genital organs
CPT/HCPCS: 51702; 80053; 80306; 81000; 82550; 82553; 83874; 85025; 85610; 85730; 87088; 93041; 99284; G0480; 36415; 80320

== ENCOUNTER 2022-02-16 14:08 | Emergency (ER) | payer SELFPAY ==
[~2022-02-16] VITALS: Ht 177.8 cm; Wt 79.4 kg
[2022-02-16 14:08] VITALS: BP 139/82
--- NOTE | 2022-02-16 14:42 | ED GU-Male ---
General Chief Complaint: - Reproductive Stated Complaint: FULL ERECTION X12 HOURS Nursing Triage Note: PATIENT STATES THAT HE WOKE UP ON 02/16/22 AROUND 0300 WITH AN ERECTION AND IT HAS NOT SUBSIDED. Source: patient Exam Limitations: no limitations (EDMUND FONSECA) History of Present Illness Date Seen by Provider: February 16, 2022 Time Seen by Provider: 14:39 Initial Comments Patient is a 41-year-old male who presents ED for erection. Patient states he has had erection since 3:00 this morning. History of similar symptoms in the past typically resolve on its own. Patient reports that penis pain. Denies of any skin color changes. Denies taking Viagra. Patient woke up with a erection. Denies fever, chills, nausea, vomit, diarrhea, chest pain, abdominal pain (EDMUND FONSECA) Allergies and Home Medications Allergies Coded Allergies: No Known Drug Allergies (Unverified , 10/14/13) Patient Home Medication List Home Medication List Reviewed: Yes (EDMUND FONSECA) Cephalexin (Keflex) 500 Mg Capsule, 500 MG PO TID Prescribed by: PERLA NGUYEN on 01/07/191956 Review of Systems Review of Systems Constitutional: No chills, No diaphoresis, No malaise, No weakness EENTM: No blurred vision, No double vision Respiratory: No cough, No dyspnea on exertion Cardiovascular: No chest pain, No edema Gastrointestinal: No RUQ, No abdominal pain, No diarrhea, No nausea, No vomiting Genitourinary: denies burning, denies discharge, denies frequency, denies flank pain Musculoskeletal: No back pain, No joint pain Skin: No change in color, No change in hair/nails Psychiatric/Neurological: Denies Anxiety, Denies Depressed (EDMUND FONSECA) All Other Systemes Reviewed Negative Unless Noted: Yes (EDMUND FONSECA) Past Etnrmbb-Gpjalh-Movajc Hx Patient Social History Tobacco Use?: Yes Tobacco type used: Cigars Smoking Status: Current Everyday Smoker Smokeless Tobacco Frequency: Never a User Use of E-Cig and/or Vaping dev: No Use of E-Cig and/or Vaping Cesar: Never a User Substance use?: Yes Substance type: Marijuana Substance frequency: Daily Alcohol Use?: Yes Alcohol type: Beer, Hard Liquor Alcohol Frequency: Once in a while Pt feels they are or have been: No (EDMUND FONSECA) Immunizations Up To Date Influenza Vaccine Up-to-Date: Yes; Up-to-Date First/Initial COVID19 Vaccinat: J&J VACCINATION 1 YEAR AGO (EDMUND FONSECA) Past Medical History Surgeries: No Respiratory: No Cardiac: No Neurological: No Reproductive Disorders: Yes (priapism) Genitourinary: Yes (priapism) Gastrointestinal: No Musculoskeletal: No Endocrine: No Cancer: No Psychosocial: No Integumentary: No Blood Disorders: No (EDMUND FONSECA) Physical Exam Vital Signs Vital Signs - First Documented 02/16/22 14:08 Temp 36.6 Pulse 82 Resp 16 B/P (MAP) 139/82 (101) Pulse Ox 97 O2 Delivery Room Air (ALICE TAVAREZ MD) Vital Signs Capillary Refill : Less Than 3 Seconds (EDMUND FNOSECA) Height, Weight, BMI Height: 5'10.00" Weight: 160lbs. oz. 72.346723ns; 25.00 BMI Method:Stated General Appearance: WD/WN, no apparent distress HEENT: PERRL/EOMI, normal ENT inspection, TMs normal, pharynx normal Neck: non-tender, full range of motion, supple Cardiovascular: regular rate, rhythm, no edema, no gallop, no JVD Respiratory: chest non-tender, lungs clear, normal breath sounds, no accessory muscle use Gastrointestinal: normal bowel sounds, non tender, soft, no organomegaly Genital/Rectal: other (Erection.) Back: normal inspection Extremities: normal range of motion, non-tender, normal inspection, no pedal edema Neurologic/Psychiatric: pension administrator II-XII nml as tested, no motor/sensory deficits, alert, normal mood/affect, oriented x 3 Skin: normal color, warm/dry (EDMUND FONSECA) Progress/Results/Core Measures Suspected Sepsis SIRS Temperature: Pulse: 82 Respiratory Rate: 16 Blood Pressure 139 /82 Mean: 101 (EDMUND FONSECA) Results/Orders Medications Given in ED Current Medications Medications Dose Ordered Sig/Anabell Route Start Time Stop Time Status Last Admin Dose Admin Ondansetron HCl 4 mg ONCE ONCE PO 02/16/22 15:15 02/16/22 15:16 DC 02/16/22 15:17 4 MG (ALICE TAVAREZ MD) Vital Signs/I&O 02/16/22 14:08 Temp 36.6 Pulse 82 Resp 16 B/P (MAP) 139/82 (101) Pulse Ox 97 O2 Delivery Room Air (ALICE TAVAREZ MD) Vital Signs/I&O Capillary Refill : Less Than 3 Seconds (EDMUND FONSECA) Blood Pressure Mean: 101 Departure Communication (PCP) Patient with penile erection since 3:00. History of priapism. No skin color changes. Denies history of Viagra use. Discussed with patient I have not performed a procedure such as aspiration or injecting medication in the penis. Attending physician Dr. Broussard recommended consult with urology. Discussed patient with Dr. Hector cheney who recommends transfer as he does not typically perform this procedure or currently on-call. Patient was discussed with Dr. Sean vicente ER at [facility] who accepts patient for transfer for urology consult. He states that typically urology will intervene. Cold packs was placed here in the ED. (EDMUND FONSECA) Impression Primary Impression: Priapism Disposition: XFER SHT-TRM HOSP Condition: Stable Transfer Transfer Reason: Exceeds level of care Time Spoke to Accepting Phy: 14:[address] Martinez Transfer Time: 14:54 Transfer Facility: [facility] Method of Transfer: Private Vehicle (EDMUND FONSECA) Departure-Patient Inst. Referrals: [facility] (PCP/Family) Primary Care Physician Patient Instructions: Priapism ATTENDING PHYSICIAN NOTE: I was physically present as attending physician in the emergency department during the care of this patient. DAVEY Melchor consulted with me regarding initial management. I advised prompt consultation with urology, and is asked contacted Dr. Young. I was not otherwise directly involved in the decision making or delivery of care for this patient. (ALICE TAVAREZ MD) EDMUND FONSECA February 16, 2022 14:42 ALICE TAVAREZ MD February 16, 2022 20:09
[2022-02-16] MEDS ORDERED: ONDANSETRON 4 MG (ZOFRAN) ORAL DISSOLVE TAB PO ONE (15:15)
[2022-02-16] MEDS ORDERED: ONDANSETRON 4 MG (ZOFRAN) ORAL DISSOLVE TAB ONE (15:15)
== END 2022-02-16 15:55 | disposition short-term general hospital (02) ==
LOC: EDUNIT# 14:08 → ER 14:09
DX: N48.30 Priapism, unspecified (principal); F17.290 Nicotine dependence, other tobacco product, uncomplicated

== ENCOUNTER 2023-05-03 16:00 | Emergency (ER) | payer SELFPAY ==
[~2023-05-03] VITALS: Ht 177 cm; Wt 70.7 kg
[2023-05-03] MEDS ORDERED: NS IV 1000 ML 1,000 ML IV STA ×2 (16:10→17:18)
[2023-05-03] MEDS ORDERED: ONDANSETRON 4 MG/2 ML (SDV) Z0FRAN IVP ONE (16:15)
--- NOTE | 2023-05-03 16:15 | ED General ---
General Stated Complaint: POSS HEAT EXPOSURE Source of Information: Patient Exam Limitations: No Limitations History of Present Illness Date Seen by Provider: May 03, 2023 Time Seen by Provider: 16:12 Initial Comments Patient is a 42-year-old male who is currently homeless who presents to the ED by EMS for heat exhaustion. Patient states he has been outside for the past 2 or 3 days. Started feeling nauseous last night reports 10+ episodes of vomiting since last night without any blood or mucus. Reports history of parasites. Reports some flea bites on his left lower leg. States he feels weak and fatigued and dehydrated. Has been trying to drink water but states he has been vomiting. Denies of any alcohol use or drug use. Denies any chest pain, cough, shortness of breath, headache, loose Nations, seizures. Denies history of COPD, asthma or coronary artery disease. Patient denies fever, chills, visual changes, sore throat, ear pain, dysuria, decreased urine output, abdominal pain, diarrhea Allergies and Home Medications Allergies Coded Allergies: No Known Drug Allergies (Unverified , 10/14/13) Patient Home Medication List Home Medication List Reviewed: Yes Cephalexin (Keflex) 500 Mg Capsule, 500 MG PO TID Prescribed by: PERLA NGUYEN on 01/07/191956 Ondansetron (Ondansetron Odt) 4 Mg Tab.rapdis, 4 MG SL Q4H PRN for NAUSEA/VOMITING Prescribed by: DAVEY VANEGAS on 05/03/231858 Review of Systems Review of Systems Constitutional: No chills, No diaphoresis, No dizziness, No fever; malaise, weakness EENTM: No blurred vision Respiratory: No cough Cardiovascular: No chest pain Gastrointestinal: No abdominal pain, No diarrhea; nausea, vomiting Genitourinary: No decreased output, No discharge, No dysuria, No frequency Musculoskeletal: No back pain, No joint pain Skin: No change in color, No change in hair/nails All Other Systems Reviewed Negative Unless Noted: Yes Past Grxdrrk-Ntbcuh-Musfdb Hx Immunizations Up To Date First/Initial COVID19 Vaccinat: J&J VACCINATION 1 YEAR AGO Past Medical History Surgeries: No Respiratory: No Cardiac: No Neurological: No Reproductive Disorders: Yes (priapism) Genitourinary: Yes (priapism) Gastrointestinal: No Musculoskeletal: No Endocrine: No Cancer: No Psychosocial: No Integumentary: No Blood Disorders: No Physical Exam Vital Signs Vital Signs - First Documented 05/03/23 16:00 Temp 36.1 Pulse 79 Resp 16 B/P (MAP) 136/89 (105) Pulse Ox 100 O2 Delivery Room Air Capillary Refill : Height, Weight, BMI Height: 5'10.00" Weight: 160lbs. oz. 72.807389qq; 25.00 BMI Method:Stated General Appearance: No Apparent Distress, WD/WN Eyes: Bilateral Eye Normal Inspection, Bilateral Eye PERRL, Bilateral Eye EOMI HEENT: PERRL/EOMI, TMs Normal, Normal ENT Inspection, Pharynx Normal Neck: Full Range of Motion, Normal Inspection, Non Tender, Supple Respiratory: Chest Non Tender, Lungs Clear, Normal Breath Sounds, No Accessory Muscle Use, No Respiratory Distress Cardiovascular: Regular Rate, Rhythm, No Edema, No Gallop, No JVD, No Murmur Gastrointestinal: Normal Bowel Sounds, No Organomegaly, No Pulsatile Mass Back: Normal Inspection, No CVA Tenderness Extremity: Normal Capillary Refill, Normal Inspection, Normal Range of Motion, Non Tender Neurologic/Psychiatric: Alert, Oriented x3, No Motor/Sensory Deficits, Normal Mood/Affect, leasing property manager II-XII Norm as Tested Skin: Normal Color, Warm/Dry Progress/Results/Core Measures Suspected Sepsis SIRS Temperature: Pulse: Respiratory Rate: Laboratory Tests 05/03/23 16:45: White Blood Count 15.0H Blood Pressure / Mean: Laboratory Tests 05/03/23 16:45: Creatinine 1.71H, Platelet Count 263, Total Bilirubin 0.9 Results/Orders Lab Results Laboratory Tests Test 05/03/23 16:45 Range/Units White Blood Count 15.0 H 4.3-11.0 10^3/uL Red Blood Count 4.36 4.30-5.52 10^6/uL Hemoglobin 14.1 13.3-17.7 g/dL Hematocrit 40 40-54 % Mean Corpuscular Volume 91 80-99 fL Mean Corpuscular Hemoglobin 32 25-34 pg Mean Corpuscular Hemoglobin Concent 35 32-36 g/dL Red Cell Distribution Width 13.1 10.0-14.5 % Platelet Count 263 130-400 10^3/uL Mean Platelet Volume 10.3 9.0-12.2 fL Immature Granulocyte % (Auto) 0 % Neutrophils (%) (Auto) 67 42-75 % Lymphocytes (%) (Auto) 25 12-44 % Monocytes (%) (Auto) 7 0-12 % Eosinophils (%) (Auto) 1 0-10 % Basophils (%) (Auto) 0 0-10 % Neutrophils # (Auto) 10.0 H 1.8-7.8 10^3/uL Lymphocytes # (Auto) 3.8 1.0-4.0 10^3/uL Monocytes # (Auto) 1.0 0.0-1.0 10^3/uL Eosinophils # (Auto) 0.1 0.0-0.3 10^3/uL Basophils # (Auto) 0.1 0.0-0.1 10^3/uL Immature Granulocyte # (Auto) 0.1 0.0-0.1 10^3/uL Neutrophils % (Manual) 65 % Lymphocytes % (Manual) 32 % Monocytes % (Manual) 2 % Eosinophils % (Manual) 1 % Platelet Estimate ADEQUATE Poikilocytosis SLIGHT Sodium Level 135 135-145 MMOL/L Potassium Level 3.4 L 3.6-5.0 MMOL/L Chloride Level 100 98-107 MMOL/L Carbon Dioxide Level 21 21-32 MMOL/L Anion Gap 14 5-14 MMOL/L Blood Urea Nitrogen 27 H 7-18 MG/DL Creatinine 1.71 H 0.60-1.30 MG/DL Estimat Glomerular Filtration Rate 51 BUN/Creatinine Ratio 16 Glucose Level 108 H 70-105 MG/DL Calcium Level 9.7 8.5-10.1 MG/DL Corrected Calcium 9.3 8.5-10.1 MG/DL Total Bilirubin 0.9 0.1-1.0 MG/DL Aspartate Amino Transf (AST/SGOT) 28 5-34 U/L Alanine Aminotransferase (ALT/SGPT) 21 0-55 U/L Alkaline Phosphatase 91 40-136 U/L Total Creatine Kinase 432 H 30-200 U/L Total Protein 8.0 6.4-8.2 GM/DL Albumin 4.5 3.2-4.5 GM/DL Lipase 16 8-78 U/L Serum Alcohol < 10 <10 MG/DL My Orders Orders - EDMUND FONSECA Cbc With Automated Diff (05/03/23 16:10) Comprehensive Metabolic Panel (05/03/23 16:10) Lipase (05/03/23 16:10) Creatine Kinase (05/03/23 16:10) Ua Culture If Indicated (05/03/23 16:10) Alcohol (05/03/23 16:10) Drug Screen Stat (Urine) (05/03/23 16:10) Ondansetron Injection (Zofran Injectio (05/03/23 16:15) Ns Iv 1000 Ml (Sodium Chloride 0.9%) (05/03/23 16:10) Manual Differential (05/03/23 16:45) Ns Iv 1000 Ml (Sodium Chloride 0.9%) (05/03/23 17:18) Potassium Chloride (Tablet) (K Dur Table (05/03/23 18:30) Medications Given in ED Current Medications Medications Dose Ordered Sig/Anabell Route Start Time Stop Time Status Last Admin Dose Admin Ondansetron HCl 4 mg ONCE ONCE IVP 05/03/23 16:15 05/03/23 16:16 DC 05/03/23 16:41 4 MG Potassium Chloride 20 meq ONCE ONCE PO 05/03/23 18:30 05/03/23 18:31 DC 05/03/23 18:45 20 MEQ Vital Signs/I&O 05/03/23 05/03/23 16:00 18:45 Temp 36.1 Pulse 79 60 Resp 16 18 B/P (MAP) 136/89 (105) 122/77 Pulse Ox 100 100 O2 Delivery Room Air Room Air Capillary Refill : Departure Communication (PCP) Reviewed previous ER visits, H&P, lab testing. Patient is homeless. Patient has been out in the heat. Vomiting since last night. Denies any alcohol use or drug use. Patient on arrival alert and orient x4. He is afebrile with stable vital signs. Attempting to eat a meal he brought with him at bedside with dry heaving. Made patient n.p.o. Reports diffuse pains. Denies any body cramping. States he feels dehydrated. CBC, CMP, CPK, lipase, alcohol level urinalysis with drug screen was ordered. CBC shows slight elevated white blood count of 15, BUN of 27, creatinine 1.71, GFR 51. CPK 432. Patient received 2 L of fluid with Zofran. Acute kidney injury likely secondary to dehydration with mild rhabdo. Soft abdomen. Denies chest pain or cough. Patient without any focal neural deficits. Patient states he wants a place to sleep. Patient was able to tolerate p.o. fluids and eat his meal. Discussed with patient that symptoms may continue to worsen. He needs to find a place that is cool and discussed the importance of hydration. Does have access to fluids. Patient able to eat at bedside. Patient does not appear in acute distress. Patient refused urine test. Vital signs remained stable. Moist mucous membranes. Patient will be discharged at this time. Follow-up your PCP in 1 to 2 days for reevaluation. Will discharge with Zofran. Patient is tolerating p.o. fluids. Vital signs stable. Provided clinic. If any worsening symptoms patient will need to return back to ED. Before discharge patient became agitated. Patient states he does not want to leave. Patient states he still nauseous. Patient was eating and drinking fluids here without any difficulties. Patient became extremely agitated. Patient threatened me and nursing staff. Discussed with patient he is medically cleared. Discussed he needs to continue drinking fluids. Patient with a stable gait. Patient was able to walk out of the ER without any difficulties. PD was contacted Impression Primary Impression: MAO (acute kidney injury) Additional Impression: Rhabdomyolysis Disposition: 01 HOME, SELF-CARE Condition: Stable Departure-Patient Inst. Decision time for Depature: 18:07 Referrals: [facility] (PCP/Family) Primary Care Physician Patient Instructions: Acute kidney injury Add. Discharge Instructions: Recommend staying hydrated. Recommend follow-up with your PCP in 1 to 2 days for reevaluation. If any worsening symptoms return back to ED. Scripts Ondansetron (Ondansetron Odt) 4 Mg Tab.rapdis 4 MG SL Q4H PRN for NAUSEA/VOMITING, #6 TAB Prov: EDMUND FONSECA 05/03/23 EDMUND FONSECA May 03, 2023 16:15
[2023-05-03 16:53] LABS: BASOPHILS # (AUTO) 0.1 10^3/uL (0.0-0.1); BASOPHILS % (AUTO) 0 % (0-10); EOSINOPHILS # (AUTO) 0.1 10^3/uL (0.0-0.3); EOSINOPHILS % (AUTO) 1 % (0-10); HEMATOCRIT 40 % (40-54); HEMOGLOBIN 14.1 g/dL (13.3-17.7); LYMPHOCYTES # (AUTO) 3.8 10^3/uL (1.0-4.0); LYMPHOCYTES % (AUTO) 25 % (12-44); MEAN CORPUSCULAR HEMOGLOBIN 32 pg (25-34); MEAN CORPUSCULAR HGB CONC 35 g/dL (32-36); MEAN CORPUSCULAR VOLUME 91 fL (80-99); MEAN PLATELET VOLUME 10.3 fL (9.0-12.2); MONOCYTES % (AUTO) 7 % (0-12); NEUTROPHILS % (AUTO) 67 % (42-75); PLATELET COUNT 263 10^3/uL (130-400)
[2023-05-03 17:09] LABS: ALBUMIN 4.5 GM/DL (3.2-4.5); CHLORIDE 100 MMOL/L (98-107); POTASSIUM 3.4 MMOL/L (3.6-5.0); SODIUM 135 MMOL/L (135-145)
[2023-05-03 17:10] LABS: CALCIUM 9.7 MG/DL (8.5-10.1)
[2023-05-03 17:11] LABS: GLUCOSE 108 MG/DL (70-105)
[2023-05-03 17:12] LABS: CARBON DIOXIDE 21 MMOL/L (21-32)
[2023-05-03 17:13] LABS: BILIRUBIN,TOTAL 0.9 MG/DL (0.1-1.0)
[2023-05-03 17:15] LABS: ALKALINE PHOSPHATASE 91 U/L (40-136); CREATININE SERUM 1.71 MG/DL (0.60-1.30); GFR ESTIMATED 51
[2023-05-03 17:16] LABS: BUN/CREATININE RATIO 16
[2023-05-03 17:18] LABS: ALANINE AMINOTRANSFERASE 21 U/L (0-55); CREATINE KINASE 432 U/L (30-200); LIPASE 16 U/L (8-78)
[2023-05-03 18:04] LABS: EOSINOPHILS % (MANUAL) 1 %; LYMPHOCYTES % (MANUAL) 32 %; MONOCYTES % (MANUAL) 2 %; NEUTROPHILS % (MANUAL) 65 %; PLATELET ESTIMATE ADEQUATE; POIKILOCYTOSIS SLIGHT
[2023-05-03] MEDS ORDERED: KCL 20 MEQ TAB (K-DUR) PO ONE (18:30)
[2023-05-03 18:45] VITALS: BP 122/77
[2023-05-03] MEDS ORDERED: ONDA4TAB11 SL (18:59)
== END 2023-05-03 18:45 | disposition home or self-care (01) ==
LOC: EDUNIT# 16:00 → ER 16:01
DX: N17.9 Acute kidney failure, unspecified (principal); M62.82 Rhabdomyolysis; Z59.00 Homelessness unspecified
CPT/HCPCS: 80053; 82550; 83690; 85007; 85027; 96361; 96374; 99284; G0480; 36415; 80320

== ENCOUNTER 2023-05-05 22:27 | Emergency (ER) | payer SELFPAY ==
[~2023-05-05] VITALS: Ht 177.8 cm; Wt 68.0 kg
[~2023-05-05 22:27] MED LIST changes: +ONDA4TAB11 SL
[2023-05-05 22:30] VITALS: BP 107/71
[2023-05-05] MEDS ORDERED: ONDANSETRON 4 MG (ZOFRAN) ORAL DISSOLVE TAB PO STA (22:42)
--- NOTE | 2023-05-05 22:45 | ED GI ---
General Stated Complaint: N/V Source of Information: Patient (EXTREMELY DIFFICULT HISTORIAN; BLEEIGERENT AND UNCOOPERATIVE AND APPEARS TO BE UNDER THE INFLUENCE OF SOME SUBSTANCE/S), EMS History of Present Illness Date Seen by Provider: May 05, 2023 Time Seen by Provider: 22:40 Initial Comments PT ARRIVES VIA EMS EMS REPORT THAT POLICE WERE ON SCENE WHEN THEY WERE THERE PT IS HOMELESS AND ADMITS TO REGULAR METHAMPHETAMINE USE C/O VOMITING PT REFUSED ALL CARE BY EMS PT WAS SEEN HERE 05/03/23 FOR SAME--PT HAD FULL WORK UP INCLUDING LABS, IV FLUIDS, NAUSEA MEDICATION AND POTASSIUM PT WAS MEDICALLY CLEARED AT THAT TIME. HIS BEHAVIOR WAS THE SAME TONIGHT--BELLIGERENT, UNCOOPERATIVE, AND HAD TO BE ESCORTED OUT BY POLICE. THIS IS A FREQUENT ISSUE WITH PT. ON ARRIVAL, PT IS UNCOOPERATIVE FOR VITALS, WON'T ANSWER QUESTIONS, BELLIGERENT, CURSING THRASHING ALL OVER AND HARSH FORCED RETCHING OCCASIONALLY DOES BRING UP CLEAR LIQUID WITH THE APPEARANCE OF WATER. HE ARRIVES WITH A LARGE PLASTIC DRINK CONTAINER Allergies and Home Medications Allergies Coded Allergies: No Known Drug Allergies (Unverified , 10/14/13) Patient Home Medication List Home Medication List Reviewed: Yes Cephalexin (Keflex) 500 Mg Capsule, 500 MG PO TID Prescribed by: PERLA NGUYEN on 01/07/191956 Ondansetron (Ondansetron Odt) 4 Mg Tab.rapdis, 4 MG SL Q4H PRN for NAUSEA/VOMITING Prescribed by: DAVEY VANEGAS on 05/03/231858 Review of Systems Review of Systems Constitutional: see HPI (UNABLE TO OBTAIN INFORMATION FROM PT DUE TO HIS BEHAVIOR) Past Dhkbfof-Drppps-Mxmmbu Hx Patient Social History Tobacco Use?: Yes Tobacco type used: Cigarettes Smoking Status: Current Everyday Smoker Substance use?: Yes Substance type: Methamphetamine Alcohol Use?: Yes Alcohol type: Beer, Hard Liquor Alcohol Frequency: Once in a while Immunizations Up To Date First/Initial COVID19 Vaccinat: J&J VACCINATION 1 YEAR AGO Past Medical History Surgeries: No Respiratory: No Cardiac: No Neurological: No Reproductive Disorders: Yes (priapism) Genitourinary: Yes (priapism) Gastrointestinal: No Musculoskeletal: No Endocrine: No Cancer: No Psychosocial: Yes (POLYSUBSTANCE ABUSE) Integumentary: No Blood Disorders: No Family Medical History SOCIAL HISTORY: -SMOKES UNKNOWN AMOUNT OF CIGARETTES -DRUGS--DAILY METHAMPHETAMINE AND THC USE--WILL NOT STATE HOW HE USES IT -ETOH--BEER AND HARD LIQUOR "SOMETIMES" PT HAS BEEN IN LONGTERM Physical Exam Vital Signs Vital Signs - First Documented 05/05/23 22:30 Temp 36.2 Pulse 92 Resp 22 B/P (MAP) 107/71 (83) Pulse Ox 97 O2 Delivery Room Air Capillary Refill : Height/Weight/BMI Height: 5'10.00" Weight: 160lbs. oz. 72.729454rr; 22.00 BMI Method:Stated General Appearance: thin, other (BEHAVIOR NOTED ABOVE. UNABLE TO FULLY EXAMINE PT DUE TO HIS BEHAVIOR. PT IS ONLY WEARING A "G-STRING" AND NOTHING ELSE. PAPER SCRUBS WERE GIVEN TO PT. ) Neurologic/Psychiatric: no motor/sensory deficits, alert, other (BEHAVIOR NOTED ABOVE. ) Skin: tattoos/piercings (MULTIPLE TATTOOS) Progress/Results/Core Measures Results/Orders My Orders Orders - ALEN EARLY DO Ondansetron Oral Dissolve Tab (Zofran (05/05/23 22:42) Vital Signs/I&O 05/05/23 22:30 Temp 36.2 Pulse 92 Resp 22 B/P (MAP) 107/71 (83) Pulse Ox 97 O2 Delivery Room Air Progress Progress Note : Progress Note PT IS UNCOOPERATIVE FOR TREATMENT HE IS REFUSING IV AFTER INITIALLY AGREEING TO ORAL NAUSEA, PT WAS GIVEN ZOFRAN ODT 8 MG TOTAL ( 2 TABLETS0--HE IMMEDIATELY SPIT THEM OUT ON THE FLOOR HE REFUSED ALL OTHER CARE HE THEN REFUSED TO LEAVE AND [place] POLICE WERE CALLED AND PT WAS ESCORTED OFF PROPERTY. POLICE ARE VERY FAMILIAR WITH HIM THEY HAVE BEEN DEALING WITH HIM MULTIPLE TIMES THIS WEEK. REVIEWED PRIOR RECORDS--ALL ER VISITS. Departure Impression Primary Impression: Methamphetamine addiction Additional Impression: Nausea & vomiting Disposition: 01 HOME, SELF-CARE Condition: Stable Departure-Patient Inst. Decision time for Depature: 22:45 Referrals: [facility] (PCP/Family) Primary Care Physician Patient Instructions: Nausea and Vomiting, Adult ED, Substance Misuse Treatment Add. Discharge Instructions: FOLLOW UP WITH ALEN STUART DO May 05, 2023 22:45
== END 2023-05-05 22:55 | disposition home or self-care (01) ==
LOC: EDUNIT# 22:27 → ER 22:29
DX: F15.20 Other stimulant dependence, uncomplicated (principal); R11.2 Nausea with vomiting, unspecified; F17.210 Nicotine dependence, cigarettes, uncomplicated

== ENCOUNTER 2023-05-06 10:08 | Emergency (ER) | payer SELFPAY ==
[~2023-05-06] VITALS: Ht 177 cm; Wt 45.0 kg
[2023-05-06 10:12] VITALS: BP 125/78
[2023-05-06] MEDS ORDERED: ONDANSETRON 4 MG (ZOFRAN) ORAL DISSOLVE TAB PO STA (10:18)
--- NOTE | 2023-05-06 10:24 | ED General ---
General Chief Complaint: Medical Screening Exam Stated Complaint: MEDICAL CLEARANCE FOR LONG-TERM ADMISSION Source of Information: Patient Exam Limitations: No Limitations History of Present Illness Date Seen by Provider: May 06, 2023 Time Seen by Provider: 10:11 Initial Comments 42-year-old male presents the emergency department today for nausea. He states every time he sits up he gets nauseated. He was playing in the grass to [facility] who subsequently called the ambulance. He is here for medical clearance for admission to [facility]. All other systems reviewed and negative except documented per HPI. Voice recognition software was used to help create this chart Allergies and Home Medications Allergies Coded Allergies: No Known Drug Allergies (Unverified , 10/14/13) Patient Home Medication List Home Medication List Reviewed: Yes Cephalexin (Keflex) 500 Mg Capsule, 500 MG PO TID Prescribed by: PERLA NGUYEN on 01/07/191956 Ondansetron (Ondansetron Odt) 4 Mg Tab.rapdis, 4 MG SL Q4H PRN for NAUSEA/VOMITING Prescribed by: DAVEY VANEGAS on 05/03/231858 Review of Systems Review of Systems Constitutional: see HPI Past Effmlvn-Ckythc-Mnhjgr Hx Patient Social History Tobacco Use?: Yes Use of E-Cig and/or Vaping dev: No Substance use?: Yes Substance type: Methamphetamine Immunizations Up To Date Influenza Vaccine Up-to-Date: No; Not Current First/Initial COVID19 Vaccinat: J&J VACCINATION 1 YEAR AGO Past Medical History Surgery/Hospitalization HX: SUBSTANCE ABUSE Surgeries: No Respiratory: No Cardiac: No Neurological: No Reproductive Disorders: Yes (priapism) Genitourinary: Yes (priapism) Gastrointestinal: No Musculoskeletal: No Endocrine: No Cancer: No Psychosocial: Yes (POLYSUBSTANCE ABUSE) Nursing Suicide Risk Notes: needing medically screening for admission to [facility]. Pt states he nauseated. Integumentary: No Blood Disorders: No Family Medical History SOCIAL HISTORY: -SMOKES UNKNOWN AMOUNT OF CIGARETTES -DRUGS--DAILY METHAMPHETAMINE AND THC USE--WILL NOT STATE HOW HE USES IT -ETOH--BEER AND HARD LIQUOR "SOMETIMES" PT HAS BEEN IN ALF Physical Exam Vital Signs Vital Signs - First Documented 05/06/23 10:12 Temp 37.0 Pulse 86 Resp 18 B/P (MAP) 125/78 (94) O2 Delivery Room Air Capillary Refill : Height, Weight, BMI Height: 5'10.00" Weight: 160lbs. oz. 72.222836ky; 21.00 BMI Method:Stated General Appearance: No Apparent Distress, WD/WN HEENT: Normal ENT Inspection, Pharynx Normal Neck: Full Range of Motion, Normal Inspection, Non Tender, Supple Respiratory: Chest Non Tender, Lungs Clear, Normal Breath Sounds, No Accessory Muscle Use, No Respiratory Distress Cardiovascular: Regular Rate, Rhythm, No Murmur, Normal Peripheral Pulses Gastrointestinal: Normal Bowel Sounds, No Organomegaly, Non Tender, Soft Extremity: Normal Capillary Refill, Other (Athlete's foot beneath the second toe on the right foot) Neurologic/Psychiatric: Alert, Oriented x3, No Motor/Sensory Deficits Skin: Normal Color, Warm/Dry Progress/Results/Core Measures Suspected Sepsis SIRS Temperature: Pulse: Respiratory Rate: Blood Pressure / Mean: Results/Orders My Orders Orders - DEVYN BUCKNER DO Ondansetron Oral Dissolve Tab (Zofran (05/06/23 10:18) Vital Signs/I&O 05/06/23 10:12 Temp 37.0 Pulse 86 Resp 18 B/P (MAP) 125/78 (94) O2 Delivery Room Air Capillary Refill : Departure Communication (Admissions) Patient is hemodynamically stable. He has no focal exam findings and his vital signs are normal. He has nausea with no described vomiting. It is really only when he goes from lying to sitting. No indication for lab workup or imaging at this time. There is no evidence for an emergent medical condition at this time. He is discharged in stable condition. He does ask me to look at his toe on his right foot prior to discharge. He has clear athlete's foot here with some cracking in the crease of his toe. Advised lumf-hlv-gldbrkb treatment and moisture reduction strategies. Impression Primary Impression: Nausea Additional Impression: Athlete's foot on right Disposition: 01 HOME, SELF-CARE Condition: Stable Departure-Patient Inst. Referrals: [facility] (PCP/Family) Primary Care Physician Patient Instructions: Athlete's Foot (DC), Nausea and Vomiting, Adult ED Add. Discharge Instructions: Get tolnaftate antifungal cream cuty-ebm-[id number], this is generic for Tinactin. Use it 3 times a day on your toe. Keep your feet as dry as possible, changing socks multiple times a day. Take your socks and shoes off when not walking so that they can dry. You nausea, nausea medicine has been prescribed to your pharmacy previous. Pick this up and use it as needed by dissolving it under your tongue. Return to the emergency department for any severe concerns. Follow with your primary doctor for any nonemergent needs. All discharge instructions reviewed with patient and/or family. Voiced understanding. DEVYN BUCKNER DO May 06, 2023 10:24
== END 2023-05-06 10:57 | disposition home or self-care (01) ==
LOC: EDUNIT# 10:08 → ER 10:10
DX: R11.10 Vomiting, unspecified (principal); B35.3 Tinea pedis; F17.210 Nicotine dependence, cigarettes, uncomplicated
CPT/HCPCS: 99283